=== PATIENT | male | born 1945 | race Caucasian/White ===

== ENCOUNTER 2017-06-03 19:01 | Emergency (ER) | payer MEDICARE, BC ==
[2017-06-03] MEDS ORDERED: NORMAL SALINE 1000 ML 1,000 ML IV ONE (19:50)
--- NOTE | 2017-06-03 19:52 | ER Document Report ---
ED Medical Screen (RME) - General Chief Complaint: Flu Symptoms Stated Complaint: FLU SYMPTOMS Time Seen by Provider: 06/03/17 19:50 Mode of Arrival: Ambulatory Information source: Patient Notes: Patient with a history of diabetes, high blood pressure, myocardial infarction, cardiac stent, presents with increasing shortness of breath and weakness over the last week. TRAVEL OUTSIDE OF THE [place] IN LAST 30 DAYS: No - Related Data Allergies/Adverse Reactions: No Known Allergies Allergy (Verified 06/03/17 19:23) Past Medical History - Past Medical History Cardiac Medical History: Reports: Hx Heart Attack, Hx Hypertension Endocrine Medical History: Reports: Hx Diabetes Mellitus Type 2 Renal/ Medical History: Denies: Hx Peritoneal Dialysis Physical Exam - Vital signs Vitals: Temp Pulse Resp BP Pulse Ox 99.1 F 88 20 156/89 H 96 06/03/17 19:22 06/03/17 19:22 06/03/17 19:22 06/03/17 19:22 06/03/17 19:22 Course - Vital Signs Vital signs: Temp Pulse Resp BP Pulse Ox 99.1 F 88 20 156/89 H 96 06/03/17 19:22 06/03/17 19:22 06/03/17 19:22 06/03/17 19:22 06/03/17 19:22
--- NOTE | 2017-06-03 20:21 | RADIOLOGY REPORT (SQ) ---
EXAM DESCRIPTION: CHEST PA/LAT COMPLETED DATE/TIME: 06/03/2017 8:01 pm REASON FOR STUDY: cough/sob COMPARISON: None. EXAM PARAMETERS: NUMBER OF VIEWS: two views TECHNIQUE: Digital Frontal and Lateral radiographic views of the chest acquired. RADIATION DOSE: NA LIMITATIONS: none FINDINGS: LUNGS AND PLEURA: No opacities, masses or pneumothorax. No pleural effusion. Chronic appe aring changes are identified. MEDIASTINUM AND HILAR STRUCTURES: No masses or contour abnormalities. HEART AND VASCULAR STRUCTURES: Heart normal size. No evidence for failure. BONES: No acute findings. HARDWARE: None in the chest. OTHER: No other significant finding. IMPRESSION: No acute changes. Other findings as noted above TECHNICAL DOCUMENTATION: JOB ID: [id number] [employer]- All Rights Reserved
[2017-06-03 20:36] LABS: VENOUS BLOOD BASE EXCESS 3.6 mmol/L; VENOUS BLOOD HCO3 28.2 mmol/L (20-32); VENOUS BLOOD PCO2 42.6 mmHg (35-63); VENOUS BLOOD PH 7.44 (7.30-7.42)
[2017-06-03 20:38] LABS: ABSOLUTE EOSINOPHILS # (AUTO) 0.1 10^3/uL (0.0-0.6); ABSOLUTE LYMPHOCYTES (AUTO) 1.7 10^3/uL (0.5-4.7); ABSOLUTE MONOCYTES (AUTO) 0.9 10^3/uL (0.1-1.4); ABSOLUTE NEUT (AUTO) 8.7 10^3/uL (1.7-8.2); BASOPHILS % (AUTO) 0.3 % (0-2); HEMATOCRIT 39.2 % (37.9-51.0); HEMOGLOBIN 13.1 g/dL (13.5-17.0); HGB HCT DIFFERENCE 0.1; LYMPHOCYTES % (AUTO) 15.1 % (13-45); MEAN CORPUSCULAR HEMOGLOBIN 30.4 pg (27.0-33.4); MEAN CORPUSCULAR HGB CONC 33.6 g/dL (32.0-36.0); MEAN CORPUSCULAR VOLUME 91 fl (80-97); RED BLOOD COUNT 4.32 10^6/uL (4.35-5.55); RED CELL DISTRIBUTION WIDTH 13.7 % (11.5-14.0); SEGMENTED NEUTROPHILS % (AUTO) 75.6 % (42-78); WHITE BLOOD COUNT 11.4 10^3/uL (4.0-10.5)
[2017-06-03 20:50] LABS: ALANINE AMINOTRANSFERASE 37 U/L (21-72); ALKALINE PHOSPHATASE 59 U/L (38-126); ANION GAP 13 (5-19); ASPARTATE AMINO TRANSFERASE 19 U/L (17-59); BILIRUBIN,DIRECT 0.3 mg/dL (0.0-0.4); BILIRUBIN,TOTAL 0.4 mg/dL (0.2-1.3); BLOOD UREA NITROGEN 17 mg/dL (7-20); CALCIUM 9.7 mg/dL (8.4-10.2); CARBON DIOXIDE 26 mmol/L (22-30); CHLORIDE 97 mmol/L (98-107); CREATININE RESULT 1.24 mg/dL (0.52-1.25); GLUCOSE 157 mg/dL (75-110); SODIUM 136.1 mmol/L (137-145); TOTAL PROTEIN 7.3 g/dL (6.3-8.2)
[2017-06-03] MEDS ORDERED: AZITHROMYCIN 250 MG TABLET PO ONE (21:34)
--- NOTE | 2017-06-03 21:39 | ER Document Report ---
ED Flu Like - General Chief Complaint: Flu Symptoms Stated Complaint: FLU SYMPTOMS Time Seen by Provider: 06/03/17 19:50 Mode of Arrival: Ambulatory Notes: Patient says he has been sick for about the past week. Has had productive cough , and chills and fever. Says he is coughing up yellow phlegm. Also says his is in the hospital here for breathing difficulties and asthma. Denies nausea vomiting or diarrhea. No UTI symptoms. No significant surgeries. Patient has not smoked for over 25 years. Has had a heart attack and a cardiac cath. Hypertension, NIDDM, high cholesterol. TRAVEL OUTSIDE OF THE [place] IN LAST 30 DAYS: No - Related Data Allergies/Adverse Reactions: No Known Allergies Allergy (Verified 06/03/17 19:23) Past Medical History - General Information source: Patient - Social History Smoking Status: Former Smoker - Stopped 25 years ago Family History: Reviewed & Not Pertinent Patient has suicidal ideation: No Patient has homicidal ideation: No - Past Medical History Cardiac Medical History: Reports: Hx Heart Attack, Hx Hypercholesterolemia, Hx Hypertension Pulmonary Medical History: Reports: Hx Asthma Endocrine Medical History: Reports: Hx Diabetes Mellitus Type 2 Past Surgical History: Reports: Hx Cardiac Catheterization Review of Systems - Review of Systems Notes: REVIEW OF SYSTEMS: CONSTITUTIONAL : Denies fever. EENT: Denies eye, ear, nose or mouth or throat pain or other symptoms. CARDIOVASCULAR: Denies chest pain. RESPIRATORY: See HPI. GASTROINTESTINAL: Denies abdominal pain or nausea, vomiting, or diarrhea. GENITOURINARY: Denies difficulty or painful urinating, urinary frequency, blood in urine. MUSCULOSKELETAL: Denies back or neck pain. Denies joint pain or swelling. SKIN: Denies rash or skin lesions. NEUROLOGICAL: Denies LOC or altered mental status. Denies headache. Denies sensory loss or motor deficits. ALL OTHER SYSTEMS REVIEWED AND NEGATIVE. Physical Exam - Vital signs Vitals: Temp Pulse Resp BP Pulse Ox 99.1 F 88 20 156/89 H 96 06/03/17 19:22 06/03/17 19:22 06/03/17 19:22 06/03/17 19:22 06/03/17 19:22 - Notes Notes: PHYSICAL EXAMINATION: GENERAL: Well-appearing, in no acute distress. Vital signs are normal. Afebrile. Congested sounding cough. HEAD: Atraumatic, normocephalic. NECK: Normal range of motion, supple. LUNGS: Breath sounds clear and equal bilaterally. No wheezes heard. HEART: Regular rate and rhythm without murmurs. ABDOMEN: Soft, nontender. No guarding or rebound. BACK: No tenderness throughout entire back. EXTREMITIES: Normal range of motion without pain. No peripheral edema. NEUROLOGICAL: Normal speech, normal gait. Normal sensory, motor, and reflex exams. Awake, alert, and oriented x3. Cranial nerves normal. SKIN: Warm, dry, no rashes. Course - Vital Signs Vital signs: Temp Pulse Resp BP Pulse Ox 98.8 F 87 18 149/75 H 96 06/03/17 21:51 06/03/17 21:51 06/03/17 21:51 06/03/17 21:51 06/03/17 21:51 - Laboratory Result Diagrams: 06/03/17 20:15 06/03/17 20:15 Laboratory results interpreted by me: 06/03/17 06/03/17 06/03/17 20:15 20:15 20:15 WBC 11.4 H RBC 4.32 L Hgb 13.1 L Absolute Neutrophils 8.7 H VBG pH 7.44 H Sodium 136.1 L Chloride 97 L Est GFR (Non-Af Amer) 57 L Glucose 157 H - Diagnostic Test Radiology results interpreted by me: 06/03/17 23:58 Chest x-ray shows no acute findings. Normal Discharge - Discharge Clinical Impression: URI (upper respiratory infection) Condition: Stable Disposition: HOME, SELF-CARE Additional Instructions: BRONCHITIS: You have acute bronchitis. This disease is an infection or inflammation of the air passageways in your lungs. Symptoms usually include cough, low grade fever, shortness of breath, and wheezing. The cough usually persists for a couple of weeks. Most cases of bronchitis get better without antibiotics. We prescribe antibiotics when we believe bacteria are damaging your airways, or if there's high risk the bronchitis will worsen into pneumonia. Increase your fluid intake. A cool mist humidifier may make your lungs more comfortable. An expectorant (cough medicine that loosens phlegm) can help. If you smoke, STOP!!! Recovery from bronchitis can be somewhat slow, but you should see improvement within a day or two. Repeated episodes of bronchitis may result in lung damage -- for example, chronic bronchitis, recurrent pneumonias, or emphysema. Call the doctor if you develop increasing fever, shortness of breath, chest pain, bloody sputum, or otherwise worsen. If you have not improved at all after several days, contact the physician. COUGH-SUPPRESSANT & EXPECTORANT MEDICATION: You are to use a cough medication as needed for relief of symptoms. This medicine is a combination of an expectorant (to make the mucous thinner and more easily "coughed up") and a cough suppressant (to reduce the frequency of coughing). The cough-suppressant medicine is related to narcotics. You may experience mild nausea and sleepiness. Some patients who are very sensitive to narcotics may have stomach pain from this medicine. Taking the medicine with food reduces these side effects. Do not drive or work with machinery until you know how this medicine affects you. The expectorant should have no side effects. Iodine-containing expectorants (such as organidin) should not be taken by persons with active thyroid disease unless approved by your doctor. Call the doctor if you develop shortness of breath, hives, rash, itching, lightheadedness, or severe nausea and vomiting. AZITHROMYCIN: Azithromycin (Zithromax) is a broad spectrum antibiotic in the same class as erythromycin. It can treat a variety of bacterial infections, but is most frequently used for respiratory infections. Azithromycin is extremely long-lasting. It accumulates in body tissues and continues to kill bacteria for many days. In order to improve absorption, Azithromycin should be taken at least one hour before or two hours after a meal. It does not have the same strong tendency to upset the stomach as erythromycin and is usually very well tolerated. Patients who have had a rash or other true allergic reactions to erythromycin should not take this medication. Call if you develop gastrointestinal distress, severe diarrhea, rash, hives, itching, or shortness of breath. USE OF ACETAMINOPHEN (Tylenol): Acetaminophen may be taken for pain relief or fever control. It's much safer than aspirin, offering a wider range of "safe" dosages. It is safe during . Some brand names are Tylenol, Panadol, Datril, Anacin 3, Tempra, and Liquiprin. Acetaminophen can be repeated every four hours. The following are maximum recommended dosages: >89 pounds or adults 650 mg to 900 mg Acetaminophen can be repeated every four hours. Maximum dose not to exceed 4000 mg a day. FOLLOW-UP CARE: If you have been referred to a physician for follow-up care, call the physician s office for an appointment as you were instructed or within the next two days. If you experience worsening or a significant change in your symptoms, notify the physician immediately or return to the Emergency Department at any time for re-evaluation. Prescriptions: Azithromycin [Zithromax 250 mg Tablet] 250 mg PO ASDIR PRN #6 tablet PRN Reason: Referrals: STEPHIE BOOTH, [Primary Care Provider] - Follow up as needed
[2017-06-03 21:59] VITALS: BP 149/75
== END 2017-06-03 21:59 | disposition home or self-care (01) ==
LOC: ER 19:01
DX: J06.9 Acute upper respiratory infection, unspecified (principal); R05 Cough; R68.83 Chills (without fever); J45.909 Unspecified asthma, uncomplicated; I10 Essential (primary) hypertension; I25.2 Old myocardial infarction; Z87.891 Personal history of nicotine dependence; E11.9 Type 2 diabetes mellitus without complications
CPT/HCPCS: 99284; 96360; 36415; 87040; 85025; 80053; 82803; 83605; 87804; 71020; A9270; J7030

== ENCOUNTER 2017-07-07 17:42 | Inpatient (IN) | payer MEDICARE, BC ==
--- NOTE | 2017-07-07 18:01 | ER Document Report ---
ED Medical Screen (RME) - General Chief Complaint: Chest pain, SOB, mavis Stated Complaint: CHEST PAIN Time Seen by Provider: 07/07/17 17:58 Mode of Arrival: Wheelchair Information source: Patient TRAVEL OUTSIDE OF THE [place] IN LAST 30 DAYS: No - HPI Patient complains to provider of: CP Onset: This morning - pt has cardiac hx with prior [place] and developed CP earlier this afternoon ("thoght I was having another heart attack). Took ASA and sl NTG times 1 and is now pain free. - Related Data Allergies/Adverse Reactions: No Known Allergies Allergy (Verified 06/03/17 19:23) Past Medical History - Past Medical History Cardiac Medical History: Reports: Hx Heart Attack, Hx Hypercholesterolemia, Hx Hypertension Pulmonary Medical History: Reports: Hx Asthma Endocrine Medical History: Reports: Hx Diabetes Mellitus Type 2 Renal/ Medical History: Denies: Hx Peritoneal Dialysis Past Surgical History: Reports: Hx Cardiac Catheterization Physical Exam - Vital signs Vitals: Temp Pulse Resp BP Pulse Ox 97.6 F 91 20 157/75 H 97 07/07/17 17:56 07/07/17 17:56 07/07/17 17:56 07/07/17 17:56 07/07/17 17:56 Course - Vital Signs Vital signs: Temp Pulse Resp BP Pulse Ox 97.6 F 91 20 157/75 H 97 07/07/17 17:56 07/07/17 17:56 07/07/17 17:56 07/07/17 17:56 07/07/17 17:56
--- NOTE | 2017-07-07 18:33 | RADIOLOGY REPORT (SQ) ---
EXAM DESCRIPTION: CHEST PA/LAT COMPLETED DATE/TIME: 07/07/2017 6:23 pm REASON FOR STUDY: CP COMPARISON: 06/03/2017 EXAM PARAMETERS: NUMBER OF VIEWS: two views TECHNIQUE: Digital Frontal and Lateral radiographic views of the chest acquired. RADIATION DOSE: NA LIMITATIONS: none FINDINGS: LUNGS AND PLEURA: No acute opacities, masses or pneumothorax. Similar chronic interstitia l markings. No pleural effusion. MEDIASTINUM AND HILAR STRUCTURES: Stable. HEART AND VASCULAR STRUCTURES: Stable. BONES: No acute findings. HARDWARE: None in the chest. OTHER: No other significant finding. IMPRESSION: No acute opacities, masses or pneumothorax. Similar chronic interstitial markings. No pleural effusion. TECHNICAL DOCUMENTATION: JOB ID: [id number] [place]-[id number] 2010 [employer]- All Rights Reserved
--- NOTE | 2017-07-07 19:03 | EKG REPORT ---
SEVERITY:- ABNORMAL ECG - SINUS RHYTHM VENTRICULAR PREMATURE COMPLEX PROBABLE LEFT ATRIAL ABNORMALITY NONSPECIFIC INTRAVENTRICULAR CONDUCTION DELAY NONSPECIFIC ST-T CHANGES- INFERIOR LEADS : Confirmed by: Gui Buenrostro MD 07-Jul-2017 19:03:25
[2017-07-07 19:13] LABS: ABSOLUTE BASOPHILS # (AUTO) 0.1 10^3/uL (0.0-0.2); ABSOLUTE EOSINOPHILS # (AUTO) 0.2 10^3/uL (0.0-0.6); ABSOLUTE LYMPHOCYTES (AUTO) 2.2 10^3/uL (0.5-4.7); ABSOLUTE MONOCYTES (AUTO) 0.8 10^3/uL (0.1-1.4); ABSOLUTE NEUT (AUTO) 8.4 10^3/uL (1.7-8.2); BASOPHILS % (AUTO) 0.6 % (0-2); EOSINOPHILS % (AUTO) 1.6 % (0-6); HEMATOCRIT 35.2 % (37.9-51.0); HEMOGLOBIN 11.8 g/dL (13.5-17.0); HGB HCT DIFFERENCE 0.2; LYMPHOCYTES % (AUTO) 18.5 % (13-45); MEAN CORPUSCULAR HEMOGLOBIN 30.2 pg (27.0-33.4); MEAN CORPUSCULAR HGB CONC 33.4 g/dL (32.0-36.0); MEAN CORPUSCULAR VOLUME 90 fl (80-97); MONOCYTES % (AUTO) 6.7 % (3-13); SEGMENTED NEUTROPHILS % (AUTO) 72.6 % (42-78); WHITE BLOOD COUNT 11.6 10^3/uL (4.0-10.5)
[2017-07-07 19:44] LABS: ALANINE AMINOTRANSFERASE 39 U/L (21-72); ALKALINE PHOSPHATASE 100 U/L (38-126); ANION GAP 12 (5-19); ASPARTATE AMINO TRANSFERASE 22 U/L (17-59); BILIRUBIN,DIRECT 0.3 mg/dL (0.0-0.4); BILIRUBIN,TOTAL 0.3 mg/dL (0.2-1.3); BLOOD UREA NITROGEN 20 mg/dL (7-20); CALCIUM 9.1 mg/dL (8.4-10.2); CARBON DIOXIDE 28 mmol/L (22-30); CHLORIDE 97 mmol/L (98-107); CREATINE KINASE 104 U/L (55-170); CREATININE RESULT 1.07 mg/dL (0.52-1.25); GLUCOSE 271 mg/dL (75-110); POTASSIUM 4.5 mmol/L (3.6-5.0); SODIUM 137.4 mmol/L (137-145)
[2017-07-07 19:54] LABS: CREATINE KINASE MB 2.38 ng/mL (<4.55)
[2017-07-07 20:41] LABS: TROPONIN I 0.04 ng/mL
--- NOTE | 2017-07-07 22:03 | ER Document Report ---
ED Cardiac - General Chief Complaint: Chest pain, mavis MORALES Stated Complaint: CHEST PAIN Time Seen by Provider: 07/07/17 17:58 Mode of Arrival: Wheelchair Notes: Patient is a 72-year-old male who comes emergency department for chief complaint of chest pain. He states that he was having pain in the center of his chest that radiated towards his left shoulder when he was walking outside, he states this lasted for a few minutes and then resolved. He did take nitroglycerin and aspirin. He states that he has not had chest pain since arrival to the emergency department. He states he had shortness of breath with the chest pain but denies nausea or vomiting. Past medical history of [place] in 1992 with stent placed at [facility], he follows with behavioral health consultant Dr. Dennis. He also has a history of CVA, diabetes, hypertension, he takes Plavix. TRAVEL OUTSIDE OF THE [place] IN LAST 30 DAYS: No - Related Data Allergies/Adverse Reactions: No Known Allergies Allergy (Verified 06/03/17 19:23) Home Medications: Current Home Medications Amlodipine Besylate 10 mg PO DAILY 07/07/17 [History] Aspirin [Aspirin 81 mg Chewable Tablet] 1 tab PO DAILY 07/07/17 [History] Cetirizine HCl [Zyrtec 10 mg Tablet] 1 tab PO DAILY 07/07/17 [History] Clopidogrel Bisulfate [Plavix 75 mg Tablet] 1 tab PO DAILY 07/07/17 [History] Glipizide 1 tab PO BID 07/07/17 [History] Isosorbide Mononitrate [Isosorbide Mononitrate ER] 60 mg PO DAILY 07/07/17 [ History] Meclizine HCl 1 tab PO BID 07/07/17 [History] Metformin HCl [Glucophage 500 mg Tablet] 500 mg PO BID 07/07/17 [History] Pantoprazole Sodium [Protonix] 1 tab PO DAILY 07/07/17 [History] Pravastatin Sodium [Pravachol] 25 mg PO DAILY 07/07/17 [History] Past Medical History - General Information source: Patient - Social History Smoking Status: Former Smoker Chew tobacco use (# tins/day): No Frequency of alcohol use: None Drug Abuse: None Lives with: Family Family History: Reviewed & Not Pertinent Patient has suicidal ideation: No Patient has homicidal ideation: No - Past Medical History Cardiac Medical History: Reports: Hx Heart Attack - multiple, Hx Hypercholesterolemia, Hx Hypertension Pulmonary Medical History: Reports: Hx Asthma Endocrine Medical History: Reports: Hx Diabetes Mellitus Type 2 Renal/ Medical History: Denies: Hx Peritoneal Dialysis Past Surgical History: Reports: Hx Cardiac Catheterization Review of Systems - Review of Systems Constitutional: No symptoms reported EENT: No symptoms reported Cardiovascular: See HPI Respiratory: See HPI Gastrointestinal: No symptoms reported Genitourinary: No symptoms reported Male Genitourinary: No symptoms reported Musculoskeletal: No symptoms reported Skin: No symptoms reported Hematologic/Lymphatic: No symptoms reported Neurological/Psychological: No symptoms reported Physical Exam - Vital signs Vitals: Temp Pulse Resp BP Pulse Ox 97.6 F 91 20 157/75 H 97 07/07/17 17:56 07/07/17 17:56 07/07/17 17:56 07/07/17 17:56 07/07/17 17:56 Interpretation: Normal - General General appearance: Appears well, Alert In distress: None - HEENT Head: Normocephalic, Atraumatic Eyes: Normal Conjunctiva: Normal Extraocular movements intact: Yes Eyelashes: Normal Pupils: PERRL Mouth/Lips: Normal Mucous membranes: Normal Pharynx: Normal Neck: Normal - Respiratory Respiratory status: No respiratory distress Chest status: Nontender Breath sounds: Normal. No: Decreased air movement, Wheezing Chest palpation: Normal - Cardiovascular Rhythm: Regular. No: Tachycardia Heart sounds: Normal auscultation, S1 appreciated, S2 appreciated Murmur: No - Abdominal Inspection: Normal Distension: No distension Bowel sounds: Normal Tenderness: Nontender. No: Tender, Guarding Organomegaly: No organomegaly - Back Back: Normal, Nontender. No: Tender - Extremities General upper extremity: Normal inspection, Nontender, Normal strength, Normal temperature General lower extremity: Normal inspection, Nontender, Normal strength, Normal temperature - Neurological Neuro grossly intact: Yes Cognition: Normal Orientation: AAOx4 Racheal Coma Scale Eye Opening: Spontaneous [place] Coma Scale Verbal: Oriented [place] Coma Scale Motor: Obeys Commands Racheal Coma Scale Total: 15 Speech: Normal Cranial nerves: Normal Cerebellar coordination: Normal Motor strength normal: LUE, RUE, LLE, RLE Sensory: Normal - Psychological Associated symptoms: Normal affect, Normal mood - Skin Skin Temperature: Warm Skin Moisture: Dry Skin Color: Normal Course - Re-evaluation Re-evalutation: EKG showing sinus rhythm at a rate of 94 with PVCs, Q waves inferiorly, no ST segment or T-wave abnormalities in consecutive leads. Chest x-ray is unremarkable. CBC shows mild leukocytosis, this is nonspecific, patient has no sick symptoms, clear lungs, soft abdomen. Chemistry generally unremarkable. Mild hyperglycemia with no acidosis. Initial troponin is indeterminate 0.04, will cycle. Repeat troponin 0 0.045, no significant change. On reevaluation patient still does not have any chest pain. Patient has a heart score of 6, he has not had a stress test in over a year reportedly, he is chest pain-free at this time. Discussed with son and patient in detail, after discussion will discuss with hospitalist for potential telemetry observation. Discussed with Dr. Sharma, internal medicine, patient will be admitted to telemetry observation. - Vital Signs Vital signs: Temp Pulse Resp BP Pulse Ox 97.6 F 96 14 146/76 H 96 07/07/17 17:56 07/08/17 02:28 07/08/17 04:01 07/08/17 04:01 07/08/17 04:01 - Laboratory Result Diagrams: 07/07/17 18:38 07/07/17 18:38 Laboratory results interpreted by me: 07/07/17 07/07/17 18:38 18:38 WBC 11.6 H RBC 3.90 L Hgb 11.8 L Hct 35.2 L Absolute Neutrophils 8.4 H Chloride 97 L Glucose 271 H Discharge - Discharge Clinical Impression: Chest pain Qualifiers: Chest pain type: unspecified Qualified Code(s): R07.9 - Chest pain, unspecified Condition: Stable Disposition: ADMITTED OBSERVATION Admitting Provider: Hospitalist Unit Admitted: Telemetry
[2017-07-07] MEDS ORDERED: LANSOPRAZOLE 15 MG TAB.RAP.DR PO ONE (23:55)
[2017-07-07] MEDS ORDERED: ONDANSETRON HCL INJ/PF 4 MG/2 ML SDV IV PRN (23:55)
[2017-07-08] MEDS: NITROGLYCERIN 2% OINTMENT 1 GM PACKET TP SCH ×3 (00:40→11:56)
[2017-07-08] MEDS ORDERED: ENOXAPARIN SODIUM INJ 80 MG/0.8 ML DISP.SYRIN SUBCUT ONE (00:45)
[2017-07-08] MEDS ORDERED: DEXTROSE 50%-WATER 25 GM/50 ML DISP.SYRIN IV PRN ×4 (01:00→14:05)
[2017-07-08] MEDS ORDERED: GLUCAGON,HUMAN RECOMB 1 MG INJ IM PRN ×2 (01:00→14:05)
[2017-07-08] MEDS ORDERED: DEXTROSE 40% GEL 15 GM TUBE PO PRN ×4 (01:00→14:05)
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
[2017-07-08 01:18] LABS: APPEARANCE,URINE CLEAR; BILIRUBIN,URINE NEGATIVE (NEGATIVE); GLUCOSE, URINE >=500 mg/dL (NEGATIVE); KETONES,URINE NEGATIVE (NEGATIVE); LEUKOCYTE ESTERASE,URINE NEGATIVE (NEGATIVE); NITRITE,URINE NEGATIVE (NEGATIVE); PROTEIN,URINE 100 mg/dL (NEGATIVE); URINE SPECIFIC GRAVITY 1.005; UROBILINOGEN,URINE NEGATIVE mg/dL (<2.0)
[2017-07-08 01:22] LABS: WBC,URINE 0-1 /HPF
[2017-07-08] MEDS: IPRATROPIUM/ALBUTEROL 0.5-2.5 MG/3 ML AMPUL NEB SCH ×4 (02:28→20:48)
[2017-07-08 04:40] LABS: CHOLESTEROL 176.04 mg/dL (0-200); CREATINE KINASE 71 U/L (55-170); Direct HDL 31 mg/dL (>40); TRIGLYCERIDES 208 mg/dL (<150)
[2017-07-08 04:52] LABS: CREATINE KINASE MB 1.57 ng/mL (<4.55); DIRECT LDL 124 mg/dL (<100); TROPONIN I 0.036 ng/mL
[2017-07-08 04:58] LABS: VLDL CHOLESTEROL 41.6 mg/dL (10-31)
[2017-07-08] MEDS: LANSOPRAZOLE 30 MG TAB.RAP.DR PO SCH (06:23)
[2017-07-08] MEDS: METHYLPREDNISOLONE INJ 40 MG/1 ML SDV IV SCH ×2 (06:23→13:17)
[2017-07-08] MEDS: MECLIZINE HCL 12.5 MG TABLET PO SCH ×2 (09:59→18:20)
[2017-07-08] MEDS: ASPIRIN 325 MG TABLET, ENT COATED PO SCH (09:59)
[2017-07-08] MEDS: DOXYCYCLINE HYCLATE 100 MG TABLET PO SCH ×2 (10:00→21:29)
[2017-07-08] MEDS: GLIPIZIDE 10 MG TABLET PO SCH ×2 (10:00→18:20)
[2017-07-08] MEDS: CLOPIDOGREL BISULFATE 75 MG TABLET PO SCH (10:00)
[2017-07-08] MEDS ORDERED: CETIRIZINE 10 MG TABLET PO SCH (10:00)
[2017-07-08] MEDS ORDERED: (PENDING PHARMACY ID) (Pantoprazole Sodium [Protonix] 1 TAB) PO SCH (10:00)
[2017-07-08] MEDS: GUAIFENESIN 600 MG TABLET.SA PO SCH ×2 (10:01→21:29)
[2017-07-08] MEDS: METFORMIN HCL 500 MG TABLET PO SCH (10:01)
[2017-07-08] MEDS: AMLODIPINE BESYLATE 10 MG TABLET PO SCH (10:01)
[2017-07-08] MEDS: ENOXAPARIN SODIUM INJ 80 MG/0.8 ML DISP.SYRIN SUBCUT SCH ×2 (10:02→21:24)
--- NOTE | 2017-07-08 11:08 | RADIOLOGY REPORT (SQ) ---
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 TECHNIQUE: Dynamic and static joel scale and color images acquired of both lower extremity venous sy stems. Selected spectral images acquired with additional compression and augmentation maneuvers. Imag es stored on PACS. LIMITATIONS: None. FINDINGS: RIGHT LEG COMMON FEMORAL AND FEMORAL: Normal phasicity, compression and augmentation. No visualized echogenic m aterial on joel scale. No defects on color images. POPLITEAL: Normal compression and augmentation. No visualized echogenic material on joel scale. No de fects on color images. CALF VESSELS: Normal compression and augmentation. No visualized echogenic material on joel scale. No defects on color image. GSV AND SSV: Normal compression. No visualized echogenic material on joel scale. No defects on color images. ANY DEEP VENOUS INSUFFICIENCY: Not evaluated. ANY EVIDENCE OF POPLITEAL CYST: No. OTHER: No other significant finding. LEFT LEG COMMON FEMORAL AND FEMORAL: Normal phasicity, compression and augmentation. No visualized echogenic m aterial on joel scale. No defects on color images. POPLITEAL: Normal compression and augmentation. No visualized echogenic material on joel scale. No de fects on color images. CALF VESSELS: Normal compression and augmentation. No visualized echogenic material on joel scale. No defects on color images. GSV AND SSV: Normal compression. No visualized echogenic material on joel scale. No defects on color images. ANY DEEP VENOUS INSUFFICIENCY: Not evaluated. ANY EVIDENCE POPLITEAL CYST: No. OTHER: No other significant finding. IMPRESSION: NO EVIDENCE DVT OR SVT IN EITHER LEG. TECHNICAL DOCUMENTATION: JOB ID: [id number] [employer]- All Rights Reserved
[2017-07-08 11:18] LABS: CREATINE KINASE MB 1.25 ng/mL (<4.55); TROPONIN I 0.029 ng/mL
[2017-07-08] MEDS: INSULIN LISPRO 100 UNIT/ML 3 ML VIAL SUBCUT PRN ×3 (11:56→21:26)
--- NOTE | 2017-07-08 14:32 | Progress Note ---
Provider Note Provider Note: Patient seen in ER after midnight admission at his bedside. Apparently there are no beds available in the hospital yet. He remains down there for now. He is scheduled to have a stress test in the morning. He denies any further chest pain, he continues to be on the monitor, admission orders entered. Past medical history includes to previous strokes, 4 MIs he denies smoking denies drinking he has diabetes he has a heart stent includes risk factors significant for his chest pain and coronary artery disease. Patient did state he ran out of his Protonix for about a month. Family member had given him some of his medication unsure exactly the dosage and the prescription of that but his scheduled Protonix 40 mg was interchange for the formulary Prevacid 30 mg here continue to monitor
[2017-07-08] MEDS ORDERED: ACETAMINOPHEN PO SCH (15:00)
[2017-07-08] MEDS ORDERED: (PENDING PHARMACY ID) (Sertraline Hcl [Zoloft] 25 MG) PO SCH (15:00)
[2017-07-08] MEDS ORDERED: ONDANSETRON HCL INJ/PF 4 MG/2 ML SDV IV PRN (15:30)
[2017-07-08] MEDS ORDERED: SERTRALINE HCL 50 MG TABLET PO ONE (15:30)
[2017-07-08] MEDS ORDERED: ISOSORBIDE MONONITRATE 60 MG TAB.ER.24H PO ONE (16:00)
[2017-07-08] MEDS: CETIRIZINE 10 MG TABLET PO SCH (17:52)
[2017-07-08] MEDS: NORMAL SALINE 1000 ML 1,000 ML IV PRN (18:20)
[2017-07-08] MEDS: METHYLPREDNISOLONE INJ 125 MG/2 ML SDV IV SCH (21:27)
[2017-07-08] MEDS: ACETAMINOPHEN 325 MG TABLET PO SCH (21:30)
[2017-07-08] MEDS ORDERED: ATORVASTATIN CALCIUM 10 MG TABLET PO SCH (22:00)
[2017-07-08] MEDS ORDERED: ATORVASTATIN CALCIUM 80 MG TABLET PO SCH (22:00)
[2017-07-09] MEDS: IPRATROPIUM/ALBUTEROL 0.5-2.5 MG/3 ML AMPUL NEB SCH ×4 (02:55→20:21)
[2017-07-09] MEDS: MAG HYDROX/AL HYDROX/SIMETH SUSP 30 ML UDCUP PO PRN ×2 (03:22→10:39)
[2017-07-09] MEDS: INSULIN LISPRO 100 UNIT/ML 3 ML VIAL SUBCUT PRN ×5 (04:33→21:17)
[2017-07-09] MEDS: MORPHINE SULFATE 10 MG/ML INJ IV PRN (04:35)
[2017-07-09 05:15] LABS: CREATINE KINASE MB 1.83 ng/mL (<4.55); TROPONIN I 0.031 ng/mL
[2017-07-09] MEDS ORDERED: INSULIN LISPRO 100 UNIT/ML 3 ML VIAL SUBCUT ONE ×2 (05:15→14:00)
[2017-07-09] MEDS: ACETAMINOPHEN 325 MG TABLET PO SCH (05:19)
[2017-07-09] MEDS: LANSOPRAZOLE 30 MG TAB.RAP.DR PO SCH (05:19)
[2017-07-09] MEDS: METHYLPREDNISOLONE INJ 125 MG/2 ML SDV IV SCH (05:21)
[2017-07-09] MEDS ORDERED: ISOSORBIDE MONONITRATE 60 MG TAB.ER.24H PO SCH (10:00)
[2017-07-09] MEDS: ENOXAPARIN SODIUM INJ 80 MG/0.8 ML DISP.SYRIN SUBCUT SCH ×2 (10:38→21:17)
[2017-07-09] MEDS ORDERED: NITROGLYCERIN 0.4 MG/TAB 25 TAB/BOTTLE ONE (11:15)
[2017-07-09] MEDS: CLOPIDOGREL BISULFATE 75 MG TABLET PO SCH (11:36)
[2017-07-09] MEDS: SERTRALINE HCL 50 MG TABLET PO SCH (11:37)
[2017-07-09] MEDS: CETIRIZINE 10 MG TABLET PO SCH (11:37)
[2017-07-09] MEDS: DOXYCYCLINE HYCLATE 100 MG TABLET PO SCH ×2 (11:38→21:20)
[2017-07-09] MEDS: AMLODIPINE BESYLATE 10 MG TABLET PO SCH (11:38)
[2017-07-09] MEDS: MECLIZINE HCL 12.5 MG TABLET PO SCH ×2 (11:39→16:59)
[2017-07-09] MEDS: ASPIRIN 325 MG TABLET, ENT COATED PO SCH (11:39)
[2017-07-09] MEDS: GUAIFENESIN 600 MG TABLET.SA PO SCH ×2 (11:39→21:22)
[2017-07-09] MEDS: GLIPIZIDE 10 MG TABLET PO SCH ×2 (11:44→17:01)
[2017-07-09] MEDS: METHYLPREDNISOLONE INJ 40 MG/1 ML SDV IV SCH ×2 (13:43→21:20)
[2017-07-09] MEDS: NORMAL SALINE 1000 ML 1,000 ML IV PRN (15:02)
[2017-07-09] MEDS: METFORMIN HCL 500 MG TABLET PO SCH (16:58)
--- NOTE | 2017-07-09 17:44 | PDOC PROGRESS REPORT ---
Subjective Progress Note for:: 07/09/17 Subjective:: Patient is seen on rounds for chest pain follow-up. He was admitted for observation and chest pain workup. He was scheduled for a cardiac stress test this morning which was canceled secondary to development of substernal chest pain radiating to bilateral upper extremities and associated with shortness of breath and diaphoresis lasting approximately 12 minutes and resolving after receiving Maalox. The patient states that he has not had any further episodes of chest pain today. He is frustrated by the delay in his exam but otherwise has no complaints. All questions were answered and concerns addressed. Reason For Visit: CHEST PAIN Physical Exam Vital Signs: Temp Pulse Resp BP Pulse Ox 98.1 F 113 H 16 150/72 H 98 07/09/17 15:28 07/09/17 15:28 07/09/17 15:28 07/09/17 15:28 07/09/17 15:28 Intake & Output 07/08/17 07/09/17 07/10/17 06:59 06:59 06:59 Intake Total 3 1303 600 Output Total 208 404 0119 Balance -747 603 -775 General appearance: PRESENT: no acute distress, well-developed, well-nourished Head exam: PRESENT: atraumatic, normocephalic Eye exam: PRESENT: conjunctiva pink, EOMI, PERRLA. ABSENT: scleral icterus Ear exam: PRESENT: normal external ear exam Mouth exam: PRESENT: moist, tongue midline Neck exam: ABSENT: carotid bruit, JVD, lymphadenopathy, thyromegaly Respiratory exam: PRESENT: rhonchi - coarse rhonchi throughout, symmetrical, unlabored. ABSENT: rales, wheezes Cardiovascular exam: PRESENT: RRR. ABSENT: diastolic murmur, rubs, systolic murmur Pulses: PRESENT: normal dorsalis pedis pul Vascular exam: PRESENT: normal capillary refill GI/Abdominal exam: PRESENT: normal bowel sounds, soft. ABSENT: distended, guarding, mass, organolmegaly, rebound, tenderness Rectal exam: PRESENT: deferred Extremities exam: PRESENT: full ROM. ABSENT: calf tenderness, clubbing, pedal edema Neurological exam: PRESENT: alert, awake, oriented to person, oriented to place , oriented to time, oriented to situation, CN II-XII grossly intact. ABSENT: motor sensory deficit Psychiatric exam: PRESENT: appropriate affect, normal mood. ABSENT: homicidal ideation, suicidal ideation Skin exam: PRESENT: dry, intact, warm. ABSENT: cyanosis, rash Results Laboratory Results: 07/08/17 07/08/17 07/08/17 03:50 03:50 10:12 Creatine Kinase 71 CK-MB (CK-2) 1.57 1.25 Troponin I 0.036 0.029 07/09/17 07/09/17 07/09/17 04:34 04:34 13:03 Creatine Kinase 56 CK-MB (CK-2) 1.83 Troponin I 0.031 0.185 Impressions: Chest X-Ray 07/07/17 17:59 IMPRESSION: No acute opacities, masses or pneumothorax. Similar chronic interstitial markings. No pleural effusion. Venous Doppler Study 07/08/17 00:00 IMPRESSION: NO EVIDENCE DVT OR SVT IN EITHER LEG. Assessment & Plan - Diagnosis (1) Non-ST elevated myocardial infarction Is this a current diagnosis for this admission?: Yes Plan: The patient was admitted with intermittent chest pain that resolved with sublingual nitro. He was placed on telemetry for observation with chest pain protocol. He was provided treatment dose Lovenox, metoprolol, Lipitor, supplemental oxygen as needed, sublingual nitroglycerin as needed, as needed IV morphine, and full dose aspirin. His serial cardiac enzymes were indeterminate but trending downwards. He was scheduled for a cardiac stress test this morning which was canceled secondary to development of substernal chest pain radiating to bilateral upper extremities and associated with shortness of breath and diaphoresis lasting approximately 12 minutes and resolving after receiving Maalox. Unfortunately, repeat troponin is elevated to 0.185. Repeat EKG was obtained and personally reviewed; no significant changes from previously and no evidence of ST segment elevation. The patient's personal electronic health records specialist, Dr. Dennis, was contacted and updated on the patient's current that is. Dr. Dennis requested that the patient be transferred to [facility] for continued care. I spoke with the hospitalist at [facility], Dr. Resendiz and, unfortunately, the patient is currently on the waiting list for transfer. In the interim be continued to be medically managed with full dose Lovenox, aspirin, Plavix, Lipitor and metoprolol. He will also be started on Imdur. (2) Acute bronchitis Qualifiers: Bronchitis organism: unspecified organism Qualified Code(s): J20.9 - Acute bronchitis, unspecified Is this a current diagnosis for this admission?: Yes Plan: Improved symptoms and decreased sputum production. He is continued on doxycycline and scheduled nebulizer treatments. Have begin weaning his Solu- Medrol. (3) Diabetes mellitus type 2 in nonobese Is this a current diagnosis for this admission?: Yes Plan: Home medication metformin is continued. Blood glucose is monitored with Accu- Cheks before meals and at bedtime with Humalog for sliding scale insulin coverage. His glucose is expectedly elevated given that he is now receiving IV steroids for a bronchitis. Additionally the patient is noncompliant with regards to his diet has been observed to be eating fast food and pasta brought in by family members. He is encouraged to follow a consistent carb diet. (4) CAD (coronary artery disease) Qualifiers: Coronary Disease-Associated Artery/Lesion type: [place] artery [place] vs. transplanted heart: [place] heart Associated angina: with stable angina Qualified Code(s): I25.118 - Atherosclerotic heart disease of [place] coronary artery with other forms of angina pectoris Is this a current diagnosis for this admission?: Yes (5) Hyperlipidemia Qualifiers: Hyperlipidemia type: unspecified Qualified Code(s): E78.5 - Hyperlipidemia , unspecified Is this a current diagnosis for this admission?: Yes Plan: Fasting lipid panel reviewed; LDL 124, HDL 31, triglycerides 208, total cholesterol 176. He was placed on Lipitor 10 mg p.o. nightly today. (6) Hypertension Qualifiers: Hypertension type: essential hypertension Qualified Code(s): I10 - Essential (primary) hypertension Is this a current diagnosis for this admission?: Yes Plan: Continue home medications; amlodipine. Patient was additionally started on metoprolol today. (7) Lower extremity edema Is this a current diagnosis for this admission?: Yes Plan: Fortunately the patient's Doppler was negative for DVT. Edema has improved today. We will continue to monitor. (8) Chronic vertigo Is this a current diagnosis for this admission?: Yes Plan: Continue meclizine twice daily - Time Time Spent with patient: 25-34 minutes Medications reviewed and adjusted accordingly: Yes Anticipated discharge: [facility] - We will be transferred to [facility] once bed is available. Within: when bed available - Inpatient Certification Based on my medical assessment, after consideration of the patient's comorbidities, presenting symptoms, or acuity I expect that the services needed warrant INPATIENT care.: Yes I certify that my determination is in accordance with my understanding of Medicare's requirements for reasonable and necessary INPATIENT services [42 CFR 412.3e].: Yes Medical Necessity: Need For Continuous Telemetry Monitoring
[2017-07-09] MEDS ORDERED: INSULIN REG, HUMAN 100 UNIT/ML 3 ML VIAL (PYX) ONE (21:05)
[2017-07-09] MEDS: METOPROLOL TARTRATE 25 MG TABLET PO SCH (21:20)
[2017-07-09] MEDS: ATORVASTATIN CALCIUM 10 MG TABLET PO SCH (21:20)
[2017-07-09] MEDS ORDERED: METOPROLOL TARTRATE PF/INJ 5 MG/5 ML SDV IV ONE ×2 (21:34→22:00)
--- NOTE | 2017-07-09 21:39 | EKG REPORT ---
SEVERITY:- ABNORMAL ECG - SINUS TACHYCARDIA NONSPECIFIC INTRAVENTRICULAR CONDUCTION DELAY PROBABLE INFEROLATERAL INFARCT, AGE INDETERM ST DEPRESSION, CONSIDER ISCHEMIA, ANT-LAT LDS : Confirmed by: Handy Wren 09-Jul-2017 21:38:39
[2017-07-09] MEDS ORDERED: INSULIN REG, HUMAN 100 UNIT/ML 3 ML VIAL (PYX) SUBCUT ONE (22:00)
--- NOTE | 2017-07-10 00:01 | EKG REPORT ---
SEVERITY:- ABNORMAL ECG - SINUS TACHYCARDIA NONSPECIFIC INTRAVENTRICULAR CONDUCTION DELAY PROBABLE INFERIOR INFARCT, AGE INDETERMINATE : Confirmed by: Handy Wren 10-Jul-2017 00:01:05
[2017-07-10] MEDS: IPRATROPIUM/ALBUTEROL 0.5-2.5 MG/3 ML AMPUL NEB SCH ×2 (02:13→08:10)
[2017-07-10] MEDS: METHYLPREDNISOLONE INJ 40 MG/1 ML SDV IV SCH ×2 (05:30→21:37)
[2017-07-10] MEDS: LANSOPRAZOLE 30 MG TAB.RAP.DR PO SCH (05:31)
--- NOTE | 2017-07-10 07:13 | EKG REPORT ---
SEVERITY:- ABNORMAL ECG - SINUS RHYTHM NONSPECIFIC INTRAVENTRICULAR CONDUCTION DELAY PROBABLE INFERIOR INFARCT, AGE INDETERMINATE : Confirmed by: Handy Wren 10-Jul-2017 17:42:15
[2017-07-10] MEDS ORDERED: METOPROLOL TARTRATE PF/INJ 5 MG/5 ML SDV IV ONE (07:15)
[2017-07-10] MEDS: ENOXAPARIN SODIUM INJ 80 MG/0.8 ML DISP.SYRIN SUBCUT SCH ×2 (09:05→21:37)
[2017-07-10] MEDS: INSULIN LISPRO 100 UNIT/ML 3 ML VIAL SUBCUT PRN ×4 (09:05→21:42)
[2017-07-10] MEDS: SERTRALINE HCL 50 MG TABLET PO SCH (09:06)
[2017-07-10] MEDS: AMLODIPINE BESYLATE 10 MG TABLET PO SCH (09:06)
[2017-07-10] MEDS: MECLIZINE HCL 12.5 MG TABLET PO SCH ×2 (09:06→18:20)
[2017-07-10] MEDS: CLOPIDOGREL BISULFATE 75 MG TABLET PO SCH (09:06)
[2017-07-10] MEDS: METOPROLOL TARTRATE 25 MG TABLET PO SCH ×2 (09:07→21:35)
[2017-07-10] MEDS: GUAIFENESIN 600 MG TABLET.SA PO SCH (09:07)
[2017-07-10] MEDS: DOXYCYCLINE HYCLATE 100 MG TABLET PO SCH ×2 (09:07→21:35)
[2017-07-10] MEDS: ISOSORBIDE MONONITRATE 30 MG TAB.ER.24H PO SCH (09:17)
[2017-07-10] MEDS: MORPHINE SULFATE 10 MG/ML INJ IV PRN (09:19)
[2017-07-10] MEDS: ASPIRIN 325 MG TABLET, ENT COATED PO SCH (09:25)
[2017-07-10] MEDS: GLIPIZIDE 10 MG TABLET PO SCH ×2 (09:25→18:20)
[2017-07-10] MEDS: CETIRIZINE 10 MG TABLET PO SCH (09:25)
--- NOTE | 2017-07-10 12:02 | EKG REPORT ---
SEVERITY:- ABNORMAL ECG - SINUS RHYTHM NONSPECIFIC INTRAVENTRICULAR CONDUCTION DELAY PROBABLE INFEROLATERAL INFARCT, AGE INDETERM ST DEPRESSION, CONSIDER ISCHEMIA, ANT-LAT LDS : Confirmed by: Handy Wren 10-Jul-2017 12:01:39
--- NOTE | 2017-07-10 12:03 | EKG REPORT ---
SEVERITY:- ABNORMAL ECG - SINUS RHYTHM NONSPECIFIC INTRAVENTRICULAR CONDUCTION DELAY PROBABLE INFEROLATERAL INFARCT, AGE INDETERM : Confirmed by: Handy Wren 10-Jul-2017 12:02:44
[2017-07-10] MEDS ORDERED: IPRATROPIUM/ALBUTEROL 0.5-2.5 MG/3 ML AMPUL NEB PRN (12:54)
[2017-07-10] MEDS ORDERED: GUAIFENESIN/CODEINE PHOS 100-10 MG/ 5 ML UDC PO PRN (12:54)
[2017-07-10 13:20] LABS: APPEARANCE,URINE CLEAR; BILIRUBIN,URINE NEGATIVE (NEGATIVE); GLUCOSE, URINE >=500 mg/dL (NEGATIVE); KETONES,URINE NEGATIVE (NEGATIVE); LEUKOCYTE ESTERASE,URINE NEGATIVE (NEGATIVE); NITRITE,URINE NEGATIVE (NEGATIVE); PROTEIN,URINE 100 mg/dL (NEGATIVE); URINE SPECIFIC GRAVITY 1.026; UROBILINOGEN,URINE NEGATIVE mg/dL (<2.0)
[2017-07-10 13:25] LABS: BACTERIA,URINE TRACE /HPF; RBC,URINE RARE /HPF; WBC,URINE RARE /HPF
--- NOTE | 2017-07-10 13:55 | PDOC PROGRESS REPORT ---
Subjective Progress Note for:: 07/10/17 Subjective:: Patient is seen on rounds for chest pain follow-up. He was admitted for observation and chest pain workup. He was scheduled for a cardiac stress test yesterday which had to be canceled secondary to development of substernal chest pain radiating to bilateral upper extremities and associated with shortness of breath and diaphoresis lasting approximately 12 minutes. This morning, the patient has had an additional episode of chest pain again radiating to bilateral arms and associated with diaphoresis and shortness of breath. The episode lasted approximately a minute and improved with morphine. Between episodes, the patient reports that he is chest pain-free and otherwise feels fine. Reason For Visit: NON STEMI, ELEVATED TROPONIN, CHEST PAIN Physical Exam Vital Signs: Temp Pulse Resp BP Pulse Ox 97.9 F 80 18 127/62 H 98 07/10/17 07:39 07/10/17 11:53 07/10/17 08:10 07/10/17 11:53 07/10/17 11:53 Intake & Output 07/09/17 07/10/17 07/11/17 06:59 06:59 06:59 Intake Total 1464 Output Total 1175 Balance 289 General appearance: PRESENT: no acute distress, well-developed, well-nourished Head exam: PRESENT: atraumatic, normocephalic Eye exam: PRESENT: conjunctiva pink, EOMI, PERRLA. ABSENT: scleral icterus Ear exam: PRESENT: normal external ear exam Mouth exam: PRESENT: moist, tongue midline Neck exam: ABSENT: carotid bruit, JVD, lymphadenopathy, thyromegaly Respiratory exam: PRESENT: clear to auscultation ted, rhonchi. ABSENT: rales, wheezes Cardiovascular exam: PRESENT: RRR. ABSENT: diastolic murmur, rubs, systolic murmur Pulses: PRESENT: normal dorsalis pedis pul Vascular exam: PRESENT: normal capillary refill GI/Abdominal exam: PRESENT: normal bowel sounds, soft. ABSENT: distended, guarding, mass, organolmegaly, rebound, tenderness Rectal exam: PRESENT: deferred Extremities exam: PRESENT: full ROM. ABSENT: calf tenderness, clubbing, pedal edema Neurological exam: PRESENT: alert, awake, oriented to person, oriented to place , oriented to time, oriented to situation, CN II-XII grossly intact. ABSENT: motor sensory deficit Psychiatric exam: PRESENT: appropriate affect, normal mood. ABSENT: homicidal ideation, suicidal ideation Skin exam: PRESENT: dry, intact, warm. ABSENT: cyanosis, rash Results Laboratory Results: 07/10/17 12:00 Urine Color STRAW Urine Appearance CLEAR Urine pH 5.0 Ur Specific Pierz 1.026 Urine Protein 100 H Urine Glucose (UA) >=500 H Urine Ketones NEGATIVE Urine Blood SMALL H Urine Nitrite NEGATIVE Ur Leukocyte Esterase NEGATIVE 07/09/17 07/09/17 07/10/17 20:20 22:00 04:18 CK-MB (CK-2) 9.22 H Troponin I 1.600 6.590 Impressions: Chest X-Ray 07/07/17 17:59 IMPRESSION: No acute opacities, masses or pneumothorax. Similar chronic interstitial markings. No pleural effusion. Venous Doppler Study 07/08/17 00:00 IMPRESSION: NO EVIDENCE DVT OR SVT IN EITHER LEG. Assessment & Plan - Diagnosis (1) Non-ST elevated myocardial infarction Is this a current diagnosis for this admission?: Yes Plan: The patient was admitted with intermittent chest pain that resolved with sublingual nitro. He was placed on telemetry for observation with chest pain protocol. He was provided treatment dose Lovenox, metoprolol, Lipitor, supplemental oxygen as needed, sublingual nitroglycerin as needed, as needed IV morphine, and full dose aspirin. His serial cardiac enzymes were indeterminate but trending downwards. He was scheduled for a cardiac stress which had to be canceled secondary to development of substernal chest pain radiating to bilateral upper extremities and associated with shortness of breath and diaphoresis lasting approximately 12 minutes and resolving after receiving Maalox. Unfortunately, repeat troponins were elevated to 0.185. Repeat EKG was obtained and personally reviewed; no significant changes from previously and no evidence of ST segment elevation. The patient's personal tobacco scrap sifter, Dr. Dennis, was contacted and updated on the patient's current that is. Dr. Dennis requested that the patient be transferred to [place] for continued care. I spoke with the hospitalist at [facility] yesterday and the patient is currently on the waiting list for transfer. His troponins have continued to increase to 6.590; serial EKGs have been obtained and are without evidence of ST segment elevation. He will continue to be medically managed with full dose Lovenox, aspirin, Plavix , Lipitor, metoprolol and imdur. Patient is to remain on supplemental oxygen and has IV morphine available as needed. (2) Acute bronchitis Qualifiers: Bronchitis organism: unspecified organism Qualified Code(s): J20.9 - Acute bronchitis, unspecified Is this a current diagnosis for this admission?: Yes Plan: Improved symptoms and decreased sputum production. He is continued on doxycycline. Continue weaning of steroids with nebulizer treatments available as needed. (3) Diabetes mellitus type 2 in nonobese Is this a current diagnosis for this admission?: Yes Plan: Home medication metformin is continued. Blood glucose is monitored with Accu- Cheks before meals and at bedtime with Humalog for sliding scale insulin coverage. His glucose is expectedly elevated given that he is now receiving IV steroids for a bronchitis. Additionally the patient is noncompliant with regards to his diet has been observed to be eating fast food and pasta brought in by family members. He is encouraged to follow a consistent carb diet. We have begun weaning steroids and expect to see gradual improvement in glucose. (4) CAD (coronary artery disease) Qualifiers: Coronary Disease-Associated Artery/Lesion type: [place] artery [place] vs. transplanted heart: [place] heart Associated angina: with stable angina Qualified Code(s): I25.118 - Atherosclerotic heart disease of [place] coronary artery with other forms of angina pectoris Is this a current diagnosis for this admission?: Yes (5) Hyperlipidemia Qualifiers: Hyperlipidemia type: unspecified Qualified Code(s): E78.5 - Hyperlipidemia , unspecified Is this a current diagnosis for this admission?: Yes Plan: Fasting lipid panel reviewed; LDL 124, HDL 31, triglycerides 208, total cholesterol 176. He was placed on Lipitor 10 mg p.o. nightly. Continued on plavix, asa and full dose lovenox. Remaining plan as above. (6) Hypertension Qualifiers: Hypertension type: essential hypertension Qualified Code(s): I10 - Essential (primary) hypertension Is this a current diagnosis for this admission?: Yes Plan: Continue home medications; amlodipine. Patient has been started on metoprolol with slight improvements in BP and HR; will continue to monitor. (7) Lower extremity edema Is this a current diagnosis for this admission?: Yes Plan: Fortunately the patient's Doppler was negative for DVT. Edema has resolved. We will continue to monitor. (8) Chronic vertigo Is this a current diagnosis for this admission?: Yes Plan: Continue meclizine twice daily - Time Time Spent with patient: 35 or more minutes Anticipated discharge: [facility] Within: when bed available - Inpatient Certification Based on my medical assessment, after consideration of the patient's comorbidities, presenting symptoms, or acuity I expect that the services needed warrant INPATIENT care.: Yes I certify that my determination is in accordance with my understanding of Medicare's requirements for reasonable and necessary INPATIENT services [42 CFR 412.3e].: Yes Medical Necessity: Need Close Monitoring Due to Risk of Patient Decompensation, Need For Continuous Telemetry Monitoring
[2017-07-10] MEDS: ATORVASTATIN CALCIUM 10 MG TABLET PO SCH (21:35)
[2017-07-11] MEDS: LANSOPRAZOLE 30 MG TAB.RAP.DR PO SCH (05:39)
[2017-07-11] MEDS: NORMAL SALINE 1000 ML 1,000 ML IV PRN (05:40)
[2017-07-11 05:42] LABS: HEMATOCRIT 36.4 % (37.9-51.0); HEMOGLOBIN 12.1 g/dL (13.5-17.0); HGB HCT DIFFERENCE -0.1; MEAN CORPUSCULAR HEMOGLOBIN 30.4 pg (27.0-33.4); MEAN CORPUSCULAR HGB CONC 33.3 g/dL (32.0-36.0); MEAN CORPUSCULAR VOLUME 91 fl (80-97); RED BLOOD COUNT 3.99 10^6/uL (4.35-5.55); RED CELL DISTRIBUTION WIDTH 14.1 % (11.5-14.0)
[2017-07-11 05:49] LABS: ANION GAP 12 (5-19); BLOOD UREA NITROGEN 43 mg/dL (7-20); CALCIUM 10.3 mg/dL (8.4-10.2); CARBON DIOXIDE 24 mmol/L (22-30); CHLORIDE 101 mmol/L (98-107); CREATININE RESULT 0.99 mg/dL (0.52-1.25); GLUCOSE 304 mg/dL (75-110); POTASSIUM 5.5 mmol/L (3.6-5.0)
[2017-07-11 06:42] LABS: WHITE BLOOD COUNT 30.3 10^3/uL (4.0-10.5)
[2017-07-11] MEDS ORDERED: SODIUM POLYSTYRENE SULFONATE 15 GM/60 ML PO ONE (07:51)
--- NOTE | 2017-07-11 10:18 | RADIOLOGY REPORT (SQ) ---
EXAM DESCRIPTION: CHEST PA/LAT COMPLETED DATE/TIME: 07/11/2017 10:10 am REASON FOR STUDY: hemoptysis COMPARISON: 07/07/2017 and 06/03/2017. EXAM PARAMETERS: NUMBER OF VIEWS: two views TECHNIQUE: Digital Frontal and Lateral radiographic views of the chest acquired. RADIATION DOSE: NA LIMITATIONS: none FINDINGS: LUNGS AND PLEURA: Hyperinflation with chronic interstitial changes. Increasing bilateral parenchymal opacities primarily in a perihilar distribution. Probable small pleural effusions. MEDIASTINUM AND HILAR STRUCTURES: No masses or contour abnormalities. HEART AND VASCULAR STRUCTURES: Heart normal size. No evidence for failure. BONES: No acute findings. HARDWARE: None in the chest. OTHER: No other significant finding. IMPRESSION: COPD WITH CHRONIC INTERSTITIAL CHANGES. INCREASING PARAHILAR OPACITIES AND SMALL PLEURA L EFFUSIONS. DIFFERENTIAL INCLUDES DEVELOPING PULMONARY EDEMA AND/OR PNEUMONIA. TECHNICAL DOCUMENTATION: JOB ID: [id number] [employer]- All Rights Reserved
[2017-07-11] MEDS: ENOXAPARIN SODIUM INJ 80 MG/0.8 ML DISP.SYRIN SUBCUT SCH ×2 (10:42→21:22)
[2017-07-11] MEDS: METHYLPREDNISOLONE INJ 40 MG/1 ML SDV IV SCH ×2 (10:42→21:25)
[2017-07-11] MEDS: CLOPIDOGREL BISULFATE 75 MG TABLET PO SCH (10:42)
[2017-07-11] MEDS: GLIPIZIDE 10 MG TABLET PO SCH ×2 (10:43→17:35)
[2017-07-11] MEDS: AMLODIPINE BESYLATE 10 MG TABLET PO SCH (10:43)
[2017-07-11] MEDS: ASPIRIN 325 MG TABLET, ENT COATED PO SCH (10:43)
[2017-07-11] MEDS: DOXYCYCLINE HYCLATE 100 MG TABLET PO SCH (10:44)
[2017-07-11] MEDS: ISOSORBIDE MONONITRATE 30 MG TAB.ER.24H PO SCH (10:44)
[2017-07-11] MEDS: MECLIZINE HCL 12.5 MG TABLET PO SCH ×2 (10:44→17:35)
[2017-07-11] MEDS: METOPROLOL TARTRATE 25 MG TABLET PO SCH ×2 (10:44→21:23)
[2017-07-11] MEDS: CETIRIZINE 10 MG TABLET PO SCH (10:45)
[2017-07-11] MEDS: SERTRALINE HCL 50 MG TABLET PO SCH (10:45)
[2017-07-11] MEDS: INSULIN LISPRO 100 UNIT/ML 3 ML VIAL SUBCUT PRN ×4 (10:49→21:22)
[2017-07-11 11:38] LABS: BASOPHILS % (MANUAL) 0 % (0-2); EOSINOPHILS % (MANUAL) 0 % (0-6); LYMPHOCYTES % (MANUAL) 10 % (13-45); TOTAL CELLS COUNTED 100
[2017-07-11 11:39] LABS: ANISOCYTOSIS SLIGHT; TOXIC GRANULATION SLIGHT
[2017-07-11] MEDS ORDERED: FUROSEMIDE INJ/PF 20 MG/2 ML SDV IV ONE (11:45)
[2017-07-11] MEDS ORDERED: VANCOMYCIN HCL 0 MG in DEXTROSE 5%-WATER 250 ML IV NR (12:15)
[2017-07-11] MEDS ORDERED: VANCOMYCIN HCL 1,250 MG in DEXTROSE 5%-WATER 250 ML IV ONE (13:00)
[2017-07-11 14:09] LABS: ANION GAP 16 (5-19); BLOOD UREA NITROGEN 39 mg/dL (7-20); CALCIUM 10.2 mg/dL (8.4-10.2); CARBON DIOXIDE 26 mmol/L (22-30); CHLORIDE 94 mmol/L (98-107); CREATININE RESULT 1.08 mg/dL (0.52-1.25); GLUCOSE 362 mg/dL (75-110); POTASSIUM 5.3 mmol/L (3.6-5.0); SODIUM 135.8 mmol/L (137-145)
--- NOTE | 2017-07-11 15:49 | PDOC PROGRESS REPORT ---
Subjective Progress Note for:: 07/11/17 Subjective:: Patient is seen on rounds for chest pain follow-up. The patient was scheduled for a cardiac stress test which had to be canceled due to him developing acute chest pain with elevated troponins to 6.590. Serial EKGs were obtained without evidence of ST segment elevation. He is waiting on bed placement for transfer to [facility]. Today the patient is seen sitting up on the edge of the bed having just finished a breathing treatment. He reports a worsening productive cough with increased hemoptysis. He shows me a tissue with blood-streaked sputum. He appears fatigued and disheveled today. He denies further occurrences of chest pain, however, states that he is just not feeling well today. He denies current chest pain, palpitations, dyspnea, and orthopnea. Reason For Visit: NON STEMI, ELEVATED TROPONIN, CHEST PAIN Physical Exam Vital Signs: Temp Pulse Resp BP Pulse Ox 97.7 F 86 16 149/73 H 98 07/11/17 11:43 07/11/17 11:43 07/11/17 11:43 07/11/17 11:43 07/11/17 11:43 Intake & Output 07/10/17 07/11/17 07/12/17 06:59 06:59 06:59 Intake Total 1464 2938 1062 Output Total 1175 1900 1901 Balance 289 1038 -839 Weight 81.5 kg General appearance: PRESENT: no acute distress, disheveled, well-developed, well -nourished Head exam: PRESENT: atraumatic, normocephalic Eye exam: PRESENT: conjunctiva pink, EOMI, PERRLA. ABSENT: scleral icterus Ear exam: PRESENT: normal external ear exam Mouth exam: PRESENT: moist, tongue midline Teeth exam: PRESENT: poor dentation Neck exam: ABSENT: carotid bruit, JVD, lymphadenopathy, thyromegaly Respiratory exam: PRESENT: crackles - Bibasilar, rhonchi - Throughout, symmetrical, unlabored. ABSENT: rales, wheezes Cardiovascular exam: PRESENT: RRR, +S1, +S2. ABSENT: diastolic murmur, rubs, systolic murmur Pulses: PRESENT: normal dorsalis pedis pul Vascular exam: PRESENT: normal capillary refill GI/Abdominal exam: PRESENT: normal bowel sounds, soft. ABSENT: distended, guarding, mass, organolmegaly, rebound, tenderness Rectal exam: PRESENT: deferred Extremities exam: PRESENT: full ROM. ABSENT: calf tenderness, clubbing, pedal edema Neurological exam: PRESENT: alert, awake, oriented to person, oriented to place , oriented to time, oriented to situation, CN II-XII grossly intact. ABSENT: motor sensory deficit Psychiatric exam: PRESENT: appropriate affect, normal mood. ABSENT: homicidal ideation, suicidal ideation Skin exam: PRESENT: dry, intact, warm. ABSENT: cyanosis, rash Results Laboratory Results: 07/11/17 05:15 07/11/17 13:07 07/11/17 07/11/17 07/11/17 05:15 05:15 05:15 WBC 30.3 H* Cancelled RBC 3.99 L Cancelled Hgb 12.1 L Cancelled Hct 36.4 L Cancelled MCV 91 Cancelled MCH 30.4 Cancelled MCHC 33.3 Cancelled RDW 14.1 H Cancelled Plt Count 360 Cancelled Seg Neutrophils % Not Reportable Cancelled Lymphocytes % Not Reportable Cancelled Monocytes % Not Reportable Cancelled Eosinophils % Not Reportable Cancelled Basophils % Not Reportable Cancelled Absolute Neutrophils Not Reportable Cancelled Absolute Lymphocytes Not Reportable Cancelled Absolute Monocytes Not Reportable Cancelled Absolute Eosinophils Not Reportable Cancelled Absolute Basophils Not Reportable Cancelled Sodium 137.0 Potassium 5.5 H Chloride 101 Carbon Dioxide 24 Anion Gap 12 BUN 43 H Creatinine 0.99 Est GFR ( Amer) > 60 Est GFR (Non-Af Amer) > 60 Glucose 304 H Calcium 10.3 H 07/11/17 13:07 WBC RBC Hgb Hct MCV MCH MCHC RDW Plt Count Seg Neutrophils % Lymphocytes % Monocytes % Eosinophils % Basophils % Absolute Neutrophils Absolute Lymphocytes Absolute Monocytes Absolute Eosinophils Absolute Basophils Sodium 135.8 L Potassium 5.3 H Chloride 94 L Carbon Dioxide 26 Anion Gap 16 BUN 39 H Creatinine 1.08 Est GFR ( Amer) > 60 Est GFR (Non-Af Amer) > 60 Glucose 362 H Calcium 10.2 07/09/17 07/09/17 07/10/17 20:20 22:00 04:18 CK-MB (CK-2) 9.22 H Troponin I 1.600 6.590 NT-Pro-B Natriuret Pep 07/11/17 05:15 CK-MB (CK-2) Troponin I NT-Pro-B Natriuret Pep 6150 H Impressions: Venous Doppler Study 07/08/17 00:00 IMPRESSION: NO EVIDENCE DVT OR SVT IN EITHER LEG. Chest X-Ray 07/11/17 00:00 IMPRESSION: COPD WITH CHRONIC INTERSTITIAL CHANGES. INCREASING PARAHILAR OPACITIES AND SMALL PLEURAL EFFUSIONS. DIFFERENTIAL INCLUDES DEVELOPING PULMONARY EDEMA AND/OR PNEUMONIA. Assessment & Plan - Diagnosis (1) CHF (congestive heart failure) Is this a current diagnosis for this admission?: Yes Plan: I have concerns that the patient is developing acute congestive heart failure episode following non-STEMI as the patient now has increased fatigue, crackles on lung sounds, and a chest x-ray suggestive of developing pulmonary edema with a proBNP elevated to 6150. We will start patient on furosemide 20 mg IV daily, obtain daily weights, and obtain an echocardiogram. Continue supplemental oxygen via nasal cannula and consider BiPAP nightly and as needed the patient's condition worsen. (2) Pneumonia Qualifiers: Pneumonia type: due to unspecified organism Is this a current diagnosis for this admission?: Yes Plan: Patient with worsened productive cough and hemoptysis today. He has remained afebrile. Leukocytosis is noted with a WBC count of 30.3. Chest x-ray was obtained and demonstrates increased perihilar opacities and a small pleural effusion suggestive of developing pulmonary edema and/or pneumonia. Blood cultures were obtained and he was started on vancomycin and Zosyn for coverage of a hospital associated pneumonia. As needed DuoNeb treatments are available. Robitussin with codeine ordered. (3) Non-ST elevated myocardial infarction Is this a current diagnosis for this admission?: Yes Plan: The patient was admitted with intermittent chest pain that resolved with sublingual nitro. He was placed on telemetry for observation with chest pain protocol. His initial serial cardiac enzymes were indeterminate but trending downwards. The following day, he was scheduled for a cardiac stress which had to be canceled secondary to development of substernal chest pain radiating to bilateral upper extremities and associated with shortness of breath and diaphoresis lasting approximately 12 minutes and resolving after receiving Maalox. Unfortunately, repeat troponins were elevated above the AMI cutoff. Repeat EKG was obtained and personally reviewed; no significant changes from previously and no evidence of ST segment elevation. The patient's personal dressmaker or tailor, Dr. Dennis, was contacted and updated on the patient's current that is. Dr. Dennis requested that the patient be transferred to [place] for continued care. History dependence were trended to 6.590, serial EKGs have been obtained and are without evidence of ST segment elevation. A second episode of chest pain occurred yesterday morning. He was provided IV morphine for comfort and repeat EKG was obtained again showing no evidence of ST segment elevation. I spoke with the nursing grinding and spraying supervisor at [facility] again today and he remains on the waiting list for transfer. He will continue to be medically managed with full dose Lovenox, aspirin, Plavix , Lipitor, metoprolol and imdur. Patient is to remain on supplemental oxygen and has IV morphine available as needed. (4) Diabetes mellitus type 2 in nonobese Is this a current diagnosis for this admission?: Yes Plan: Blood glucose is monitored with Accu-Cheks before meals and at bedtime with Humalog for sliding scale insulin coverage. His glucose is expectedly elevated given that he is now receiving IV steroids. Additionally the patient is noncompliant with regards to his diet has been observed to be eating fast food and pasta brought in by family members. He is encouraged to follow a consistent carb diet. We will discontinue metformin as the patient is now receiving vancomycin for HAP. (5) CAD (coronary artery disease) Qualifiers: Coronary Disease-Associated Artery/Lesion type: [place] artery [place] vs. transplanted heart: [place] heart Associated angina: with stable angina Qualified Code(s): I25.118 - Atherosclerotic heart disease of [place] coronary artery with other forms of angina pectoris Is this a current diagnosis for this admission?: Yes (6) Hyperlipidemia Qualifiers: Hyperlipidemia type: unspecified Qualified Code(s): E78.5 - Hyperlipidemia , unspecified Is this a current diagnosis for this admission?: Yes Plan: Fasting lipid panel reviewed; LDL 124, HDL 31, triglycerides 208, total cholesterol 176. He was placed on Lipitor 10 mg p.o. nightly. Continued on plavix, asa and full dose lovenox. Remaining plan as above. (7) Hypertension Qualifiers: Hypertension type: essential hypertension Qualified Code(s): I10 - Essential (primary) hypertension Is this a current diagnosis for this admission?: Yes Plan: Continue home medications; amlodipine. Patient has been started on metoprolol with slight improvements in BP and HR; will continue to monitor. (8) Acute bronchitis Qualifiers: Bronchitis organism: unspecified organism Qualified Code(s): J20.9 - Acute bronchitis, unspecified Is this a current diagnosis for this admission?: Yes Plan: Worsened symptoms today with leukocytosis. See plan as above. (9) Lower extremity edema Is this a current diagnosis for this admission?: Yes Plan: Fortunately the patient's Doppler was negative for DVT. Edema has resolved. We will continue to monitor. (10) Chronic vertigo Is this a current diagnosis for this admission?: Yes Plan: Continue meclizine twice daily - Time Time Spent with patient: 35 or more minutes Anticipated discharge: [facility] Within: when bed available - Inpatient Certification Based on my medical assessment, after consideration of the patient's comorbidities, presenting symptoms, or acuity I expect that the services needed warrant INPATIENT care.: Yes I certify that my determination is in accordance with my understanding of Medicare's requirements for reasonable and necessary INPATIENT services [42 CFR 412.3e].: Yes Medical Necessity: Need Close Monitoring Due to Risk of Patient Decompensation, Need For Continuous Telemetry Monitoring, Need for IV Antibiotics
[2017-07-11 16:50] LABS: HEMATOCRIT 36.3 % (37.9-51.0); HEMOGLOBIN 12.1 g/dL (13.5-17.0); MEAN CORPUSCULAR HGB CONC 33.4 g/dL (32.0-36.0); MEAN CORPUSCULAR VOLUME 90 fl (80-97); RED BLOOD COUNT 4.04 10^6/uL (4.35-5.55); RED CELL DISTRIBUTION WIDTH 14.2 % (11.5-14.0); WHITE BLOOD COUNT 24.8 10^3/uL (4.0-10.5)
[2017-07-11 17:04] LABS: ANION GAP 15 (5-19); BLOOD UREA NITROGEN 41 mg/dL (7-20); CALCIUM 9.8 mg/dL (8.4-10.2); CARBON DIOXIDE 28 mmol/L (22-30); CHLORIDE 94 mmol/L (98-107); CREATININE RESULT 1.02 mg/dL (0.52-1.25); GLUCOSE 338 mg/dL (75-110); POTASSIUM 5.2 mmol/L (3.6-5.0); SODIUM 136.5 mmol/L (137-145)
[2017-07-11 17:14] LABS: BASOPHILS % (MANUAL) 0 % (0-2); EOSINOPHILS % (MANUAL) 0 % (0-6); LYMPHOCYTES % (MANUAL) 5 % (13-45); TOTAL CELLS COUNTED 100
[2017-07-11 17:16] LABS: ANISOCYTOSIS SLIGHT; HYPOCHROMASIA SLIGHT; POIKILOCYTOSIS SLIGHT; TOXIC GRANULATION 1+; TOXIC VACUOLATION PRESENT
[2017-07-11] MEDS: PIPERACILLIN SODIUM/TAZOBACTAM 3.375 GM in NORMAL SALINE 100 ML IV SCH ×2 (17:34→23:52)
[2017-07-11] MEDS: ATORVASTATIN CALCIUM 10 MG TABLET PO SCH (21:22)
[2017-07-11] MEDS: VANCOMYCIN HCL 1,250 MG in DEXTROSE 5%-WATER 250 ML IV SCH (21:32)
[2017-07-12] MEDS: PIPERACILLIN SODIUM/TAZOBACTAM 3.375 GM in NORMAL SALINE 100 ML IV SCH ×2 (05:40→11:25)
[2017-07-12] MEDS: LANSOPRAZOLE 30 MG TAB.RAP.DR PO SCH (05:40)
[2017-07-12] MEDS: INSULIN LISPRO 100 UNIT/ML 3 ML VIAL SUBCUT PRN ×2 (05:47→11:26)
[2017-07-12 09:28] LABS: HEMATOCRIT 34.9 % (37.9-51.0); HEMOGLOBIN 11.4 g/dL (13.5-17.0); HGB HCT DIFFERENCE -0.7; MEAN CORPUSCULAR HGB CONC 32.6 g/dL (32.0-36.0); MEAN CORPUSCULAR VOLUME 92 fl (80-97); RED BLOOD COUNT 3.79 10^6/uL (4.35-5.55); RED CELL DISTRIBUTION WIDTH 14.4 % (11.5-14.0); WHITE BLOOD COUNT 20.1 10^3/uL (4.0-10.5)
[2017-07-12 09:44] LABS: ANION GAP 14 (5-19); BLOOD UREA NITROGEN 33 mg/dL (7-20); CALCIUM 9.2 mg/dL (8.4-10.2); CARBON DIOXIDE 25 mmol/L (22-30); CHLORIDE 94 mmol/L (98-107); POTASSIUM 4.8 mmol/L (3.6-5.0); SODIUM 133.4 mmol/L (137-145)
[2017-07-12] MEDS: CLOPIDOGREL BISULFATE 75 MG TABLET PO SCH (09:44)
[2017-07-12] MEDS: SERTRALINE HCL 50 MG TABLET PO SCH (09:44)
[2017-07-12] MEDS: MECLIZINE HCL 12.5 MG TABLET PO SCH (09:45)
[2017-07-12] MEDS: ASPIRIN 325 MG TABLET, ENT COATED PO SCH (09:45)
[2017-07-12] MEDS: CETIRIZINE 10 MG TABLET PO SCH (09:45)
[2017-07-12] MEDS: METOPROLOL TARTRATE 25 MG TABLET PO SCH (09:45)
[2017-07-12] MEDS: ISOSORBIDE MONONITRATE 30 MG TAB.ER.24H PO SCH (09:45)
[2017-07-12] MEDS: AMLODIPINE BESYLATE 10 MG TABLET PO SCH (09:46)
[2017-07-12] MEDS: GLIPIZIDE 10 MG TABLET PO SCH (09:46)
[2017-07-12] MEDS: METHYLPREDNISOLONE INJ 40 MG/1 ML SDV IV SCH (09:47)
[2017-07-12] MEDS: VANCOMYCIN HCL 1,250 MG in DEXTROSE 5%-WATER 250 ML IV SCH (09:48)
[2017-07-12 09:49] LABS: BASOPHILS % (MANUAL) 0 % (0-2); EOSINOPHILS % (MANUAL) 0 % (0-6); LYMPHOCYTES % (MANUAL) 10 % (13-45); TOTAL CELLS COUNTED 100
[2017-07-12 09:52] LABS: ANISOCYTOSIS SLIGHT; TOXIC GRANULATION SLIGHT
[2017-07-12] MEDS: ENOXAPARIN SODIUM INJ 80 MG/0.8 ML DISP.SYRIN SUBCUT SCH (09:54)
[2017-07-12 09:56] LABS: GLUCOSE 456 mg/dL (75-110)
[2017-07-12] MEDS ORDERED: FUROSEMIDE INJ/PF 20 MG/2 ML SDV IV SCH (10:00)
[2017-07-12] MEDS ORDERED: NORMAL SALINE 1000 ML 1,000 ML IV PRN (10:01)
--- NOTE | 2017-07-12 11:43 | XCELERA REPORT ---
[address] [address] Transthoracic Echocardiogram Report Name: KOURTNEY JOSEPH Age: 72 yrs Gender: Male : 1945 Patient Status: Inpatient Patient Location: [address] [place] [address] Study Date: 07/11/2017 02:42 PM Height: 71 in Weight: 179 lb BSA: 2.0 m2 Procedure: A two-dimensional transthoracic echocardiogram with color flow and Doppler was performed. Study Quality: Fair. Reason For Study: NSTEMI / PULMONARY EDEMA History: NSTEMI / PULMONARY EDEMA. Ordering Physician: CARO CARDOZA Performed By: [place] Interpretation Summary The left ventricle is mildly dilated. There is normal left ventricular wall thickness. LV EF is 40% to 45% Left ventricular systolic function is moderately reduced. There is moderate global hypokinesis of the left ventricle. There is no thrombus. The right ventricle is grossly normal size. The right ventricle is not well visualized secondary to technical limitations The right atrium is normal. The left atrium is moderately dilated. The interatrial septum is intact with no evidence for an atrial septal defect. There is no evidence of mitral valve prolapse. There is no vegetation seen on the mitral valve. There is no mitral valve stenosis. There is a moderate amount of mitral regurgitation There is no aortic valve stenosis There is no LVOT obstruction. No aortic regurgitation is present. There is no tricuspid stenosis. Dopplers across Tricuspid Valve is suboptimal.Perhaps mild TR.TVSP is 70 mm of Hg , with RA mean of 5. There is servere pulmonary hypertension by echo There is no pulmonic valvular stenosis. There is a mild amount of pulmonic regurgitation There is no pericardial effusion. MMode/2D Measurements & Calculations RVDd: 3.4 cm LVIDd: 6.0 cm FS: 23.4 % Ao root diam: 2.7 cm IVSd: 1.0 cm LVIDs: 4.6 cm EDV(Teich): 179.3 ml LVPWd: 1.0 cm ESV(Teich): 96.6 ml Ao root area: 5.9 cm2 EF(Teich): 46.1 % Doppler Measurements & Calculations MV E max tonja: MV dec slope: Ao V2 max: LV V1 max P.2 cm/sec 127.5 cm/sec 2.7 mmHg MV A max tonja: 601.0 cm/sec2 Ao max PG: LV V1 max: 55.3 cm/sec MV dec time: 6.5 mmHg 82.6 cm/sec MV E/A: 1.7 0.15 sec PA V2 max: PI end-d tonja: TR max tonja: 87.5 cm/sec 169.7 cm/sec 388.5 cm/sec PA max PG: TR max P.1 mmHg 60.6 mmHg Left Ventricle The left ventricle is mildly dilated. There is normal left ventricular wall thickness. LV EF is 40% to 45%. Left ventricular systolic function is moderately reduced. Doppler measurements suggest normal left ventricular diastolic function. There is moderate global hypokinesis of the left ventricle. There is no thrombus. There is no ventricular septal defect visualized. Right Ventricle The right ventricle is grossly normal size. The right ventricle is not well visualized secondary to technical limitations. Atria The right atrium is normal. The left atrium is moderately dilated. The interatrial septum is intact with no evidence for an atrial septal defect. Mitral Valve There is no evidence of mitral valve prolapse. There is no vegetation seen on the mitral valve. There is no mitral valve stenosis. There is a moderate amount of mitral regurgitation. Aortic Valve There is no aortic valve stenosis. There is no LVOT obstruction. No aortic regurgitation is present. Tricuspid Valve There is no tricuspid stenosis. Dopplers across Tricuspid Valve is suboptimal.Perhaps mild TR.TVSP is 70 mm of Hg , with RA mean of 5. There is servere pulmonary hypertension by echo. Pulmonic Valve There is no pulmonic valvular stenosis. There is a mild amount of pulmonic regurgitation. Great Vessels The aortic root is normal size. Effusions There is no pericardial effusion. : CARO CARDOZA > Joanna Pablo
--- NOTE | 2017-07-12 12:27 | PDOC TRANSFER SUMMARY ---
General Admission Date/PCP: 07/09/17 17:00 STEPHIE BOOTH DO Admission Date: 07/08/17 Transfer Date: 07/12/17 Accepting Facility: [facility] Accepting Physician: Dr. Resendiz Resuscitation Status: Full Code - Transfer Diagnosis (1) CHF (congestive heart failure) Is this a current diagnosis for this admission?: Yes Diagnosis Summary: Patient developed acute congestive heart failure following a non-STEMI on July 09. Chest x-ray completed yesterday and was treated developing pulmonary edema and the patient was found to have a proBNP elevated to 6150. The patient was started on IV furosemide and an echocardiogram was obtained. Echocardiogram demonstrated LVEF is 40-45%. The left ventricle is mildly dilated with moderate global hypokinesis. He was also found to have a TVSP of 70mm of Hg with RA mean of 5. There is severe pulmonary hypertension by echo. Clinically the patient appears improved today after diuresis. His blood pressure is stable he is maintaining his oxygen saturations on supplemental oxygen via nasal cannula. He denies dyspnea, orthopnea, chest pain and palpitations. (2) Pneumonia Is this a current diagnosis for this admission?: Yes Diagnosis Summary: The patient was initially admitted with a COPD exacerbation and treated with IV steroids, scheduled nebulizer treatments, and doxycycline. Sleep the patient improved, however, it developed a low-grade temp with increased purulent sputum production. Laboratory workup yesterday revealed white blood cell count of 30k and chest x-ray demonstrated probable developing pulmonary edema versus pneumonia. Blood cultures were obtained and have no growth at 24 hours. the doxycycline was discontinued and he was placed on vancomycin and Zosyn for antibiotic treatment of hospital associated pneumonia. (3) Non-ST elevated myocardial infarction Is this a current diagnosis for this admission?: Yes Diagnosis Summary: The patient was initially admitted to the chest pain observation unit. His initial serial cardiac enzymes were indeterminate trending downwards. The following day he is scheduled for a cardiac stress test which was canceled secondary to an acute episode of chest pain radiating to bilateral upper extremities. Shortly, repeat troponins were elevated above the AMI cutoff. Serial EKGs were obtained without evidence of ST segment elevation. I personally spoke with the patient's mainspring strip gauger, Dr. Dennis who requested the patient be transferred to [facility] for continued care. He has been medically managed with full dose Lovenox, aspirin, Plavix, Lipitor, metoprolol, and indoor. He remains on supplemental oxygen and has IV morphine available as needed. (4) Diabetes mellitus type 2 in nonobese Is this a current diagnosis for this admission?: Yes Diagnosis Summary: Glucose has remained expectedly elevated throughout the admission secondary to IV steroid therapy. Blood sugar has been managed with Humalog for sliding scale coverage. (5) Hypertension Is this a current diagnosis for this admission?: Yes Diagnosis Summary: The patient's home medication amlodipine was continued. He was started on low- dose metoprolol with slight improvement noted in blood pressure and heart rate. (6) CAD (coronary artery disease) Is this a current diagnosis for this admission?: Yes Diagnosis Summary: As above. (7) Hyperlipidemia Is this a current diagnosis for this admission?: Yes Diagnosis Summary: Fasting lipid panel was obtained as part of the chest pain protocol. LDL 124, HDL 31, triglycerides 208, total cholesterol 176. He has been placed on Lipitor 10 mg p.o. nightly. (8) Acute bronchitis Is this a current diagnosis for this admission?: Yes Diagnosis Summary: As above: Patient now being treated for hospital-acquired pneumonia. (9) Lower extremity edema Is this a current diagnosis for this admission?: Yes Diagnosis Summary: Upon admission the patient was noted to have bilateral lower extremity edema. Fortunately the patient's Doppler was negative for DVT. The edema has since resolved. - Transfer Medications Home Medications: Acetaminophen [Tylenol Extra Strength 500 mg Tablet] 1,500 mg PO Q12 07/08/17 Amlodipine Besylate [Norvasc 10 mg Tablet] 10 mg PO DAILY 07/08/17 Aspirin [Aspirin 81 mg Chewable Tablet] 81 mg PO Q2DAYS 07/08/17 Cetirizine HCl [Zyrtec 10 mg Tablet] 10 mg PO DAILY 07/08/17 Clopidogrel Bisulfate [Plavix 75 mg Tablet] 75 mg PO DAILY 07/08/17 Glipizide [Glucotrol 10 mg Tablet] 10 mg PO Q12 07/08/17 Isosorbide Mononitrate [Imdur 60 mg Tablet.er] 60 mg PO DAILY 07/08/17 Metformin HCl [Glucophage 500 mg Tablet] 500 mg PO BID 07/08/17 Pantoprazole Sodium [Protonix] 40 mg PO Q6AM 07/08/17 Pravastatin Sodium [Pravachol] 20 mg PO QHS 07/08/17 Sertraline HCl [Zoloft] 25 mg PO DAILY 07/08/17 Transfer Medications: Current Medications Al Hydrox/Mg Hydrox/Simethicone (Maalox Plus Susp 30 Udcup) 30 ml PO Q4HP PRN PRN Reason: indigestion Stop: 08/06/17 23:54 Last Admin: 07/09/17 10:39 Dose: 30 ml Albuterol/Ipratropium (Duoneb 3 Ml Ampul) 3 ml NEB RTQ6HP PRN PRN Reason: FOR WHEEZING Stop: 08/09/17 12:52 Last Admin: 07/11/17 04:56 Dose: 3 ml Amlodipine Besylate (Norvasc 10 Mg Tablet) 10 mg PO DAILY [facility] Stop: 08/07/17 09:59 Last Admin: 07/12/17 09:46 Dose: 10 mg Aspirin (Ecotrin 325 Mg Ec Tablet) 325 mg PO DAILY [facility] Stop: 08/07/17 09:59 Last Admin: 07/12/17 09:45 Dose: 325 mg Atorvastatin Calcium (Lipitor 10 Mg Tablet) 10 mg PO QHS [facility] Stop: 08/08/17 07:49 Last Admin: 07/11/17 21:22 Dose: 10 mg Cetirizine HCl (Zyrtec 10 Mg Tablet) 10 mg PO DAILY [facility] Stop: 08/07/17 09:59 Last Admin: 07/12/17 09:45 Dose: 10 mg Clopidogrel Bisulfate (Plavix 75 Mg Tablet) 75 mg PO DAILY [facility] Stop: 08/07/17 09:59 Last Admin: 07/12/17 09:44 Dose: 75 mg Dextrose (Dextrose Inj 50% Syringe (25 Gm/50 Ml)) 12.5 gm IV PRN PRN; Protocol PRN Reason: FOR BG 50-69 IN ALERT PATIENT Stop: 08/07/17 00:59 Dextrose (Dextrose Inj 50% Syringe (25 Gm/50 Ml)) 25 gm IV PRN PRN PRN Reason: Protocol Stop: 08/07/17 00:59 Enoxaparin Sodium (Lovenox Inj 80 Mg/0.8 Ml Disp.Syrin) 80 mg SUBCUT Q12 [facility] Stop: 08/06/17 23:44 Last Admin: 07/12/17 09:54 Dose: 80 mg Furosemide (Lasix Inj/Pf 20 Mg/2 Ml Sdv) 20 mg IV DAILY [facility] Stop: 08/11/17 09:59 Last Admin: 07/12/17 09:47 Dose: 20 mg Glipizide (Glucotrol 10 Mg Tablet) 10 mg PO BID [facility] Stop: 08/07/17 09:59 Last Admin: 07/12/17 09:46 Dose: 10 mg Glucagon (Glucagen Inj 1 Mg Vial) 1 mg IM PRN PRN; Protocol PRN Reason: Evaluate for BG < 70 Stop: 08/07/17 00:59 Glucose (Glutose 40% Gel 15 Gm Tube) 15 gm PO PRN PRN; Protocol PRN Reason: FOR BG 50-69 IN ALERT PATIENT Stop: 08/07/17 00:59 Glucose (Glutose 40% Gel 15 Gm Tube) 30 gm PO PRN PRN; Protocol PRN Reason: FOR BG < 50 IN ALERT PATIENT Stop: 08/07/17 00:59 Guaifenesin/Codeine Phosphate (Robitussin-Ac Liquid 5 Ml Udcup) 5 ml PO QIDP PRN Stop: 08/09/17 12:53 Piperacillin Sod/Tazobactam (Sod 3.375 gm/ Sodium Chloride) 100 mls @ 200 mls/ hr IV Q6 [facility] Stop: 07/18/17 17:59 Last Admin: 07/12/17 11:25 Dose: 3.375 gm Vancomycin HCl 1,250 mg/ (Dextrose) 250 mls @ 166.667 mls/hr IV Q12 [facility] Stop: 07/18/17 21:59 Last Admin: 07/12/17 09:48 Dose: 1,250 mg Sodium Chloride (Nacl 0.9% 1000 Ml Iv Soln) 1,000 mls @ 75 mls/hr IV CONTINUOUS PRN PRN Reason: THIS MED IS NOT "PRN" Stop: 08/11/17 10:00 Insulin Human Lispro (Humalog Insulin 100 Unit/1 Ml 3 Ml Vial) 0 - 12 unit SUBCUT ACHSP PRN PRN Reason: Protocol Stop: 08/07/17 00:59 Last Admin: 07/12/17 11:26 Dose: 12 unit Isosorbide Mononitrate (Imdur 30 Mg Tablet.Er) 30 mg PO DAILY [facility] Stop: 08/09/17 09:59 Last Admin: 07/12/17 09:45 Dose: 30 mg Lansoprazole (Prevacid 30 Mg Odt Tablet) 30 mg PO Q6AM [facility] Stop: 08/07/17 05:59 Last Admin: 07/12/17 05:40 Dose: 30 mg Meclizine HCl (Antivert 12.5 Mg Tablet) 12.5 mg PO BID [facility] Stop: 08/07/17 09:59 Last Admin: 07/12/17 09:45 Dose: 12.5 mg Methylprednisolone Sodium Succinate (Solu-Medrol Inj/Pf 40 Mg/1 Ml Sdv) 40 mg IV Q12 [facility] Stop: 08/09/17 21:59 Last Admin: 07/12/17 09:47 Dose: 40 mg Metoprolol Tartrate (Lopressor 25 Mg Tablet) 12.5 mg PO Q12 [facility] Stop: 08/08/17 21:59 Last Admin: 07/12/17 09:45 Dose: 12.5 mg Morphine Sulfate (Morphine 10 Mg/Ml Inj) 4 mg IV Q4HP PRN PRN Reason: pain if not relieved by nitro Stop: 07/14/17 23:54 Last Admin: 07/10/17 09:19 Dose: 4 mg Ondansetron HCl (Zofran Inj/Pf 4 Mg/2 Ml Sdv) 4 mg IV Q6HP PRN PRN Reason: nausea Stop: 08/06/17 23:54 Sertraline HCl (Zoloft 50 Mg Tablet) 25 mg PO DAILY [facility] Stop: 08/08/17 09:59 Last Admin: 07/12/17 09:44 Dose: 25 mg Sodium Chloride (Saline Flush 2.5 Ml Monoject Prefil Syrin) 2.5 ml IV Q8 [facility] Stop: 08/07/17 05:59 Last Admin: 07/12/17 05:50 Dose: Not Given - Allergies Allergies/Adverse Reactions: No Known Allergies Allergy (Verified 06/03/17 19:23) - Diet/Activity Discharge Diet: Cardiac, Diabetic Discharge Activity: Energy Conservation Physical Exam Vital Signs: Temp Pulse Resp BP Pulse Ox 97.5 F 84 16 141/73 H 96 07/12/17 06:51 07/12/17 09:41 07/12/17 09:41 07/12/17 06:51 07/12/17 09:41 Intake & Output 07/11/17 07/12/17 07/13/17 06:59 06:59 06:59 Intake Total 2938 2591 Output Total 0050 3511 Balance 1038 -920 Weight 81.5 kg 78.3 kg General appearance: PRESENT: no acute distress, well-developed, well-nourished Head exam: PRESENT: atraumatic, normocephalic Eye exam: PRESENT: conjunctiva pink, EOMI, PERRLA. ABSENT: scleral icterus Ear exam: PRESENT: normal external ear exam Mouth exam: PRESENT: moist, tongue midline Teeth exam: PRESENT: poor dentation Neck exam: ABSENT: carotid bruit, JVD, lymphadenopathy, thyromegaly Respiratory exam: PRESENT: crackles - Bibasilar, rhonchi - Improved from yesterday, symmetrical, unlabored, other - Mental oxygen via nasal cannula at 3 L/min. ABSENT: rales, wheezes Cardiovascular exam: PRESENT: RRR, +S1, +S2. ABSENT: diastolic murmur, rubs, systolic murmur Pulses: PRESENT: normal dorsalis pedis pul Vascular exam: PRESENT: normal capillary refill GI/Abdominal exam: PRESENT: normal bowel sounds, soft. ABSENT: distended, guarding, mass, organolmegaly, rebound, tenderness Rectal exam: PRESENT: deferred Extremities exam: PRESENT: full ROM. ABSENT: calf tenderness, clubbing, pedal edema Neurological exam: PRESENT: alert, awake, oriented to person, oriented to place , oriented to time, oriented to situation, CN II-XII grossly intact. ABSENT: motor sensory deficit Psychiatric exam: PRESENT: appropriate affect, normal mood. ABSENT: homicidal ideation, suicidal ideation Skin exam: PRESENT: dry, intact, warm. ABSENT: cyanosis, rash Results Laboratory Results: 07/12/17 09:13 07/12/17 09:13 07/11/17 07/11/17 07/11/17 13:07 16:40 16:40 WBC 24.8 H RBC 4.04 L Hgb 12.1 L Hct 36.3 L MCV 90 MCH 30.0 MCHC 33.4 RDW 14.2 H Plt Count 380 Seg Neutrophils % Not Reportable Lymphocytes % Not Reportable Monocytes % Not Reportable Eosinophils % Not Reportable Basophils % Not Reportable Absolute Neutrophils Not Reportable Absolute Lymphocytes Not Reportable Absolute Monocytes Not Reportable Absolute Eosinophils Not Reportable Absolute Basophils Not Reportable Sodium 135.8 L 136.5 L Potassium 5.3 H 5.2 H Chloride 94 L 94 L Carbon Dioxide 26 28 Anion Gap 16 15 BUN 39 H 41 H Creatinine 1.08 1.02 Est GFR ( Amer) > 60 > 60 Est GFR (Non-Af Amer) > 60 > 60 Glucose 362 H 338 H Calcium 10.2 9.8 07/12/17 07/12/17 09:13 09:13 WBC 20.1 H RBC 3.79 L Hgb 11.4 L Hct 34.9 L MCV 92 MCH 30.0 MCHC 32.6 RDW 14.4 H Plt Count 355 Seg Neutrophils % Not Reportable Lymphocytes % Not Reportable Monocytes % Not Reportable Eosinophils % Not Reportable Basophils % Not Reportable Absolute Neutrophils Not Reportable Absolute Lymphocytes Not Reportable Absolute Monocytes Not Reportable Absolute Eosinophils Not Reportable Absolute Basophils Not Reportable Sodium 133.4 L Potassium 4.8 Chloride 94 L Carbon Dioxide 25 Anion Gap 14 BUN 33 H Creatinine 1.00 Est GFR ( Amer) > 60 Est GFR (Non-Af Amer) > 60 Glucose 456 H* Calcium 9.2 07/09/17 07/09/17 07/10/17 20:20 22:00 04:18 CK-MB (CK-2) 9.22 H Troponin I 1.600 6.590 NT-Pro-B Natriuret Pep 07/11/17 05:15 CK-MB (CK-2) Troponin I NT-Pro-B Natriuret Pep 6150 H Impressions: Venous Doppler Study 07/08/17 00:00 IMPRESSION: NO EVIDENCE DVT OR SVT IN EITHER LEG. Chest X-Ray 07/11/17 00:00 IMPRESSION: COPD WITH CHRONIC INTERSTITIAL CHANGES. INCREASING PARAHILAR OPACITIES AND SMALL PLEURAL EFFUSIONS. DIFFERENTIAL INCLUDES DEVELOPING PULMONARY EDEMA AND/OR PNEUMONIA. Plan Discharge Plan: Transfer to [facility] Time Spent: Less than 30 Minutes
[2017-07-12 12:49] VITALS: BP 149/84
== END 2017-07-12 14:30 | disposition short-term general hospital (02) | DRG 280 ==
LOC: ER 17:42 → EH 23:38 → 4W 07-08 16:46 → OBSVTOIN 07-09 17:00
PROVIDERS: ADMIT Family Medicine; ATTEND Family Medicine
DX: I21.A1 Myocardial infarction type 2 (principal); J18.9 Pneumonia, unspecified organism; I50.9 Heart failure, unspecified; I27.20 Pulmonary hypertension, unspecified; I11.0 Hypertensive heart disease with heart failure; E78.4 Other hyperlipidemia; E03.9 Hypothyroidism, unspecified; E11.9 Type 2 diabetes mellitus without complications; I25.118 Atherosclerotic heart disease of native coronary artery with other forms of angina pectoris; J20.9 Acute bronchitis, unspecified; R42 Dizziness and giddiness; R60.0 Localized edema; I25.2 Old myocardial infarction; Z79.01 Long term (current) use of anticoagulants; Z79.84 Long term (current) use of oral hypoglycemic drugs; Z79.82 Long term (current) use of aspirin; Z79.899 Other long term (current) drug therapy; Z87.891 Personal history of nicotine dependence; Z95.5 Presence of coronary angioplasty implant and graft; Z86.73 Personal history of transient ischemic attack (TIA), and cerebral infarction without residual deficits
CPT/HCPCS: 36415; 71020; 80048; 80053; 80061; 81001; 82550; 82553; 82962; 83880; 84443; 84484; 85025; 87040; 93005; 93010; 93306; 93970; 94640; 96372; 96374; 96376; 99285; G0378; J1650; J1815; J1940; J2270; J2543; J2920; J2930; J3370; J3490; J7030; J7060; J7620

== ENCOUNTER 2017-08-04 15:38 | Emergency (ER) | payer MEDICARE, BC ==
[2017-08-04 16:28] VITALS: BP 144/95
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
[2017-08-04 17:55] LABS: ABSOLUTE EOSINOPHILS # (AUTO) 0.2 10^3/uL (0.0-0.6); ABSOLUTE LYMPHOCYTES (AUTO) 2.2 10^3/uL (0.5-4.7); ABSOLUTE MONOCYTES (AUTO) 1.1 10^3/uL (0.1-1.4); ABSOLUTE NEUT (AUTO) 6.4 10^3/uL (1.7-8.2); BASOPHILS % (AUTO) 0.4 % (0-2); EOSINOPHILS % (AUTO) 1.6 % (0-6); HEMATOCRIT 33.7 % (37.9-51.0); HEMOGLOBIN 11.2 g/dL (13.5-17.0); LYMPHOCYTES % (AUTO) 21.9 % (13-45); MEAN CORPUSCULAR HEMOGLOBIN 30.4 pg (27.0-33.4); MEAN CORPUSCULAR HGB CONC 33.4 g/dL (32.0-36.0); MEAN CORPUSCULAR VOLUME 91 fl (80-97); MONOCYTES % (AUTO) 10.7 % (3-13); PLATELET COUNT 407 10^3/uL (150-450); RED BLOOD COUNT 3.69 10^6/uL (4.35-5.55); RED CELL DISTRIBUTION WIDTH 14.1 % (11.5-14.0); SEGMENTED NEUTROPHILS % (AUTO) 65.4 % (42-78); TOTAL CELLS COUNTED % (AUTO) 100 %; WHITE BLOOD COUNT 9.8 10^3/uL (4.0-10.5)
[2017-08-04 18:12] LABS: ALANINE AMINOTRANSFERASE 42 U/L (21-72); ALKALINE PHOSPHATASE 64 U/L (38-126); ANION GAP 11 (5-19); ASPARTATE AMINO TRANSFERASE 17 U/L (17-59); BILIRUBIN,DIRECT 0.2 mg/dL (0.0-0.4); BILIRUBIN,TOTAL 0.2 mg/dL (0.2-1.3); BLOOD UREA NITROGEN 22 mg/dL (7-20); CALCIUM 10.2 mg/dL (8.4-10.2); CARBON DIOXIDE 28 mmol/L (22-30); CHLORIDE 99 mmol/L (98-107); GLUCOSE 141 mg/dL (75-110); POTASSIUM 5.1 mmol/L (3.6-5.0); SODIUM 138.2 mmol/L (137-145); TOTAL PROTEIN 6.7 g/dL (6.3-8.2)
--- NOTE | 2017-08-04 18:14 | RADIOLOGY REPORT (SQ) ---
EXAM DESCRIPTION: WRIST LEFT 3 VIEWS COMPLETED DATE/TIME: 08/04/2017 5:53 pm REASON FOR STUDY: ulnar styloid pain and swelling COMPARISON: None. NUMBER OF VIEWS: Three views. TECHNIQUE: AP, lateral, and oblique radiographic images acquired of the left wrist. LIMITATIONS: None. FINDINGS: MINERALIZATION: Normal. BONES: No acute fracture or dislocation. No worrisome bone lesions. Normal alignment. SOFT TISSUES: No soft tissue swelling. No foreign body. OTHER: No other significant finding. IMPRESSION: NEGATIVE STUDY OF THE LEFT WRIST. NO RADIOGRAPHIC EVIDENCE OF ACUTE INJURY. TECHNICAL DOCUMENTATION: JOB ID: [id number] [employer]- All Rights Reserved
--- NOTE | 2017-08-06 09:30 | EKG REPORT ---
SEVERITY:- ABNORMAL ECG - SINUS RHYTHM NONSPECIFIC INTRAVENTRICULAR CONDUCTION DELAY PROBABLE INFEROLATERAL INFARCT, AGE INDETERM NONSPECIFIC ST-T CHANGES : Confirmed by: Handy Wren 06-Aug-2017 09:28:55
== END 2017-08-04 19:51 | disposition home or self-care (01) ==
LOC: ER 15:38
DX: S46.812A Strain of other muscles, fascia and tendons at shoulder and upper arm level, left arm, initial encounter (principal); M25.532 Pain in left wrist; M25.512 Pain in left shoulder; M79.89 Other specified soft tissue disorders; Z79.899 Other long term (current) drug therapy; Z87.891 Personal history of nicotine dependence; M77.9 Enthesopathy, unspecified; X58.XXXA Exposure to other specified factors, initial encounter
CPT/HCPCS: 93005; 99284; 36415; 84550; 85025; 80053; 73110; 93010; L3908

== ENCOUNTER 2017-08-16 22:58 | Emergency (ER) | payer MEDICARE, BC ==
[2017-08-17] MEDS ORDERED: MELOXICAM 15 MG TABLET PO ONE (00:30)
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
[2017-08-17 00:52] VITALS: BP 122/86
[2017-08-17] MEDS ORDERED: MELOXICAM 15 MG TABLET ONE (01:04)
== END 2017-08-17 01:00 | disposition home or self-care (01) ==
LOC: ER 22:58
DX: M19.90 Unspecified osteoarthritis, unspecified site (principal); M79.671 Pain in right foot; M79.672 Pain in left foot; M25.561 Pain in right knee; M25.562 Pain in left knee; M25.511 Pain in right shoulder; M25.512 Pain in left shoulder; M54.9 Dorsalgia, unspecified; M54.2 Cervicalgia; G89.29 Other chronic pain
CPT/HCPCS: 99283; A9270